=== PATIENT | female | born 1935 | race Caucasian/White ===

== ENCOUNTER → 2019-08-30 16:20 | Outpatient (BNVA) | payer MEDICARE, OTHER, SELFPAY | PROVIDERS: Family Provider Family Medicine; PCP Nurse Practitioner Family; Visit Provider Emergency Medicine | DX: J02.9 Acute pharyngitis, unspecified (principal) | CPT/HCPCS: 87070; 87880 ==

== ENCOUNTER 2020-05-19 13:51 | Emergency (ER) | payer MEDICARE, OTHER, SELFPAY ==
[2020-05-19 13:57] VITALS: BP 104/74; PULSE 122; RESP 18; TEMP 37.1; O2SAT 96; BMI 25.8
--- NOTE | 2020-05-19 14:16 | XRR_ITS ---
PROCEDURE INFORMATION: Exam: XR Chest Exam date and time: 05/19/2020 2:18 PM Age: 84 years old Clinical indication: Other: Dizzy; Additional info: Dizziness TECHNIQUE: Imaging protocol: XR of the chest Views: 1 view. COMPARISON: CR Chest 1 [place] [id number] 08/18/2014 4:05 PM FINDINGS: Tubes, catheters and devices: Unchanged postoperative clips are projected over the lung bases. Lungs: The lungs are hyperinflated with unchanged mild diffuse fibrosis. No consolidation. There is unchanged scarring left lung base. Pulmonary vascularity is within normal limits. Unchanged small calcified pulmonary granulomata are noted. Pleural spaces: Unremarkable. No pleural effusion. No pneumothorax. Heart/Mediastinum: Unremarkable. No cardiomegaly. Bones/joints: No acute abnormality. XR/XR chest 1V portable [id number] IMPRESSION: No acute findings.
--- NOTE | 2020-05-19 14:17 | ECG_ITS ---
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 Measurements Intervals [place] Rate: 133 P: NV: QRS: -10 QRSD: 74 T: 84 QT: 277 QTc: 413 Interpretive Statements ATRIAL FLUTTER/TACHYCARDIA WITH RAPID VENTRICULAR RESPONSE NONSPECIFIC T-WAVE ABNORMALITY Compared to ECG 08/18/2014 16:25:16 T-wave abnormality now present Sinus rhythm no longer present Electronically Signed On 05-19-2020 16:58:37 PROGRAM ENGAGEMENT DIRECTOR by Lorenzo Waldron M.D. [email or web address] [email or web address] Health[facility].[employer]/store/[id number] f
[2020-05-19 14:50] VITALS: BP 151/92; PULSE 122; RESP 15; O2SAT 97
--- NOTE | 2020-05-19 14:55 | W.ED.DIZZY ---
HPI - Dizziness General: Chief Complaint: Dizziness Stated Complaint: FLUNCUATING HEART RATE, NAUSEA Time Seen by Provider: 05/19/20 14:15 Source: patient Mode of arrival: ambulatory Limitations: no limitations History of Present Illness: HPI Narrative: Patient is a well-appearing 84-year-old female who appears younger than stated age and presents with complaints of feeling dizzy for the last 2 days. She states that she is felt near syncopal at times and knows that her heart is racing. She denies any chest pain or discomfort. She has had some associated nausea and vomiting and feeling generally ill since this started yesterday. No fevers or chills. She has tried some deep breathing exercise without any improvement of symptoms. MD elicited complaint: dizziness, lightheadedness and near syncope Onset (ago): day(s) (2) Timing: unsure Severity: moderate Associated symptoms: Reports malaise, nausea, palpitations, vomiting and weakness; Denies chest pain, fevers/chills or headache(s) Associated neuro symptoms: Deny confusion Review of Systems General: Reports: 10 or more systems reviewed and unremarkable except in HPI and below Const: Reports: malaise; Denies: fever(s) Eyes: Denies: change in vision Card: Reports: palpitations and irregular heart rhythm; Denies: chest pain or swelling of feet/ankles Resp: Denies: dyspnea GI: Reports: nausea and vomiting; Denies: abdominal pain Musc: Denies: back pain Skin/Breast: Denies: rash or pruritus Neuro: Denies: headache(s) or confusion PFS ED PFSH: Social History (Updated 08/30/19 @ 16:04 by Heidi Ignacio [facility]) Smoking and tobacco status: never smoked Alcohol intake: never Physical Exam Narrative: EXAM NARRATIVE: Well-appearing 84-year-old female in no acute distress Const: COMMON NORMALS: no acute distress, average body habitus, alert and well nourished GENERAL APPEARANCE: cooperative, comfortable and well kempt; not in distress ORIENTATION/CONSCIOUSNESS: Yes awake HENMT: COMMON NORMALS: normocephalic, atraumatic and Normal external nose present HEAD & SCALP: normocephalic and atraumatic NOSE: Normal external nose present MOUTH: Normal oral and palatal mucosa present Eye: COMMON NORMALS: EOMs intact bilaterally and conjunctivae normal CONJUNCTIVA: Yes conjunctivae normal Neck/C-Spine: GENERAL: Yes normal visual inspection, No tracheal deviation and No submandibular swelling Chest: COMMONS NORMALS: normal inspection of the chest Resp: COMMON NORMALS: normal respiratory effort, No retractions and No use of accessory muscles Cardio: COMMON NORMALS: Peripheral pulses 2+ throughout; negative for regular rate and negative for regular rhythm RATE: abnormal rate RHYTHM: abnormal rhythm PERIPHERAL PULSES: Peripheral pulses 2+ throughout OTHER: Tachycardic, rate is typically in the 120s and 130s rates. Appears to be atrial flutter with variable block. GI: COMMON NORMALS: Normal to inspection, nondistended, normoactive bowel sounds present, Soft to palpation and non-tender PALPATION: Yes Soft to palpation Extremity: COMMON NORMALS: normal to inspection, full ROM and no pedal edema Neuro: COMMON NORMALS: no focal motor deficits SENSORIUM/ORIENTATION: Yes alert Psych: APPEARANCE: Yes well kempt Skin: COMMON NORMALS: no rashes or lesions noted GENERAL SKIN EXAM: no rashes or lesions noted Course ED course: Patient was given 5 mg of IV metoprolol shortly after her initial evaluation. Approximately 10 or 15 minutes after this patient converted to sinus bradycardia. She has remained in sinus rhythm since that time and states she feels much better. Her laboratory work-up is unremarkable. Second troponin is pending. I spoke with Dr. Vera with cardiology who recommended starting the patient on 5 mg Eliquis twice daily. Patient does not have any contraindications to anticoagulation. Patient does not currently have a digital photographer and will go ahead and arrange for referral to cardiology locally. Patient was educated on her evaluation and plan for treatment and she is comfortable with this. She was given return precautions. Vital Signs: Vital signs: Vital Signs Temperature 98.7 F 05/19/20 13:57 Pulse Rate 57 L 05/19/20 17:04 Respiratory Rate 15 05/19/20 17:04 Blood Pressure 134/91 05/19/20 15:28 Pulse Oximetry 99 05/19/20 17:04 MDM - Dizziness Lab Data: Attestation: I reviewed the patient's lab results. Labs: Lab Results 05/19/20 05/19/20 05/19/20 Range/Units 15:00 15:00 15:00 WBC 6.9 (4.0-10.0) 10^3/ uL RBC 4.37 (4.1-5.3) 10^6/u L Hgb 14.0 (11.5-15.3) g/dL Hct 42.8 (37.0-47.0) % MCV 97.9 (81-99) fL MCH 32.0 (28.0-34.0) pg MCHC 32.7 (30.0-36.0) g/dL RDW 12.1 (12.1-15.1) % Plt Count 264 (130-400) 10^3/c mm MPV 10.9 H (7.4-10.4) fL Neut % (Auto) 68.7 % Lymph % (Auto) 23.9 % [place] % (Auto) 6.6 % Eos % (Auto) 0.1 % Baso % (Auto) 0.3 % Neut # (Auto) 4.76 (1.8-7.7) 10^3/u L Lymph # (Auto) 1.7 (0.8-4.8) 10^3/u L [place] # (Auto) 0.5 (0.2-0.9) 10^3/u L Eos # (Auto) 0.0 (0.0-0.8) 10^3/u L Baso # (Auto) 0.0 (0.0-0.1) 10^3/u L Nucleated RBC % (a uto) 0 % Nucleated RBCs # 0.0 /100WBC PT 13.40 (12.1-14.9) SECO NDS INR 0.99 (0.8-1.2) APTT 30.4 (23.9-36.7) SECO NDS Sodium 136 (136-145) mmol/L Potassium 4.5 (3.5-5.1) mmol/L Chloride 100 (98-107) mmol/L Carbon Dioxide 25 (22-29) mmol/L Anion Gap 15.5 (5-19) BUN 14 (8-23) mg/dL Creatinine 0.7 (0.5-0.9) mg/dL GFR Calculation Not Reportable Glucose 103 (65-115) mg/dL Calculated Osmolal ity 283 L (285-295) mOsm/k g Calcium 9.3 (8.5-10.5) mg/dL Magnesium 1.9 (1.7-2.3) mg/dL Total Bilirubin 0.4 (0.15-1.2) mg/dL AST 17 (0-32) U/L ALT 12 (0-33) U/L Alkaline Phosphata se 76 (35-105) IU/L Troponin T Baselin e (0-10) ng/L Troponin T 120 Min [place] (0-10) ng/L Delta Troponin T (0-10) ABS# Total Protein 7.3 (6.6-8.7) g/dL Albumin 4.4 (3.5-5.2) g/dL Globulin 2.9 (1.3-4.6) g/dL TSH 2.70 (0.27-4.20) uIU/ mL 05/19/20 05/19/20 Range/Units 15:00 17:05 WBC (4.0-10.0) 10^3/ uL RBC (4.1-5.3) 10^6/u L Hgb (11.5-15.3) g/dL Hct (37.0-47.0) % MCV (81-99) fL MCH (28.0-34.0) pg MCHC (30.0-36.0) g/dL RDW (12.1-15.1) % Plt Count (130-400) 10^3/c mm MPV (7.4-10.4) fL Neut % (Auto) % Lymph % (Auto) % [place] % (Auto) % Eos % (Auto) % Baso % (Auto) % Neut # (Auto) (1.8-7.7) 10^3/u L Lymph # (Auto) (0.8-4.8) 10^3/u L [place] # (Auto) (0.2-0.9) 10^3/u L Eos # (Auto) (0.0-0.8) 10^3/u L Baso # (Auto) (0.0-0.1) 10^3/u L Nucleated RBC % (a uto) % Nucleated RBCs # /100WBC PT (12.1-14.9) SECO NDS INR (0.8-1.2) APTT (23.9-36.7) SECO NDS Sodium (136-145) mmol/L Potassium (3.5-5.1) mmol/L Chloride (98-107) mmol/L Carbon Dioxide (22-29) mmol/L Anion Gap (5-19) BUN (8-23) mg/dL Creatinine (0.5-0.9) mg/dL GFR Calculation Glucose (65-115) mg/dL Calculated Osmolal ity (285-295) mOsm/k g Calcium (8.5-10.5) mg/dL Magnesium (1.7-2.3) mg/dL Total Bilirubin (0.15-1.2) mg/dL AST (0-32) U/L ALT (0-33) U/L Alkaline Phosphata se (35-105) IU/L Troponin T Baselin e 28 H (0-10) ng/L Troponin T 120 Min [place] 31.54 H (0-10) ng/L Delta Troponin T 3.54 (0-10) ABS# Total Protein (6.6-8.7) g/dL Albumin (3.5-5.2) g/dL Globulin (1.3-4.6) g/dL TSH (0.27-4.20) uIU/ mL No acute lab abnormalities. EKG Data^: EKG 1: EKG interpretation date: 05/19/20 EKG interpretation time: 14:20 Other EKG comments: ATRIAL FLUTTER/TACHYCARDIA WITH RAPID VENTRICULAR RESPONSE NONSPECIFIC T-WAVE ABNORMALITY EKG 2: EKG interpretation date: 05/19/20 EKG interpretation time: 15:25 Interpretation: Rate of 54 bpm. Sinus bradycardia rhythm. [place] interval is normal. Atrial flutter is no longer present. Discharge Plan Discharge Patient Disposition: Home Clinical Impression: Atrial flutter with rapid ventricular response Condition: Stable Prescriptions: New Eliquis 5 mg tablet 5 mg PO BID Qty: 60 RF: 0 No Action losartan 25 mg tablet 25 mg PO DAILY@0800 RF: 0 metoprolol tartrate 25 mg tablet 12.5 mg PO BID@0800,1999 RF: 0 hydrochlorothiazide 12.5 mg tablet 12.5 mg PO DAILY@0800 RF: 0 levothyroxine 88 mcg tablet 88 mcg PO DAILY@0600 RF: 0 meclizine 12.5 mg tablet 12.5 mg PO DAILY PRN (Reason: Dizziness) RF: 0 Vitamin C 1,000 mg Tablet 1,000 mg PO DAILY@0800 RF: 0 temazepam 7.5 mg capsule 7.5 mg PO DAILY@2000 RF: 0 gabapentin 100 mg capsule 100 mg PO BID RF: 0 Centrum Silver Ultra Women's Tablet 1 tab PO DAILY@0800 RF: 0 magnesium 1 tab PO DAILY@0800 RF: 0 Discharge Orders: Discharge ED (Routine); Ordered 05/19/20 Ordered By: Regulo Webb Referrals: Lorenzo Waldron M.D [Physician] - 1 week (atrial fib/flutter. ) Discharge Diet: Cardiac Discharge Activity: Resume usual activity Patient Instructions: Anticoagulation Therapy, Atrial Flutter (ED), Opioid Safety Coding Level of Care Code ED Aircraft Technician for Giorgi Fwd Exam Comprehensive
[2020-05-19] MEDS: metoprolol tartrate 1 mg/1 mL SDV 5 mL 5 MG IV (15:07)
[2020-05-19 15:10] VITALS: BP 134/91; PULSE 127; RESP 20; O2SAT 97
[2020-05-19 15:28] VITALS: BP 134/91; PULSE 53; RESP 14; O2SAT 97
[2020-05-19 15:37] LABS: Basophils % 0.3 %; Eosinophils % 0.1 %; Hematocrit 42.8 % (37.0-47.0); Lymphocytes # 1.7 10^3/uL (0.8-4.8); Lymphocytes % 23.9 %; Mean Corpuscular HGB Conc 32.7 g/dL (30.0-36.0); Mean Corpuscular Volume 97.9 fL (81-99); Mean Platelet Volume 10.9 fL (7.4-10.4); Monocytes # 0.5 10^3/uL (0.2-0.9); Monocytes % 6.6 %; Neutrophils # 4.76 10^3/uL (1.8-7.7); Neutrophils % 68.7 %; Nucleated Red Blood Cells % 0 %; Platelet Count 264 10^3/cmm (130-400); Red Blood Count 4.37 10^6/uL (4.1-5.3); Red Cell Distribution Width 12.1 % (12.1-15.1); White Blood Count 6.9 10^3/uL (4.0-10.0)
[2020-05-19 15:48] LABS: INR 0.99 (0.8-1.2)
[2020-05-19 15:49] LABS: Partial Thromboplastin Time 30.4 SECONDS (23.9-36.7)
[2020-05-19 15:58] LABS: Troponin(5th) Baseline 28 ng/L (0-10)
[2020-05-19 16:03] LABS: Alanine Aminotransferase 12 U/L (0-33); Albumin Level 4.4 g/dL (3.5-5.2); Alkaline Phosphatase 76 IU/L (35-105); Anion Gap 15.5 (5-19); Aspartate Amino Transferase 17 U/L (0-32); Blood Urea Nitrogen 14 mg/dL (8-23); Calcium 9.3 mg/dL (8.5-10.5); Carbon Dioxide 25 mmol/L (22-29); Chloride 100 mmol/L (98-107); Globulin 2.9 g/dL (1.3-4.6); Glucose 103 mg/dL (65-115); Magnesium 1.9 mg/dL (1.7-2.3); Osmolality Calculated 283 mOsm/kg (285-295); Potassium 4.5 mmol/L (3.5-5.1); Sodium 136 mmol/L (136-145); Total Bilirubin 0.4 mg/dL (0.15-1.2); Total Protein 7.3 g/dL (6.6-8.7)
--- NOTE | 2020-05-19 16:05 | ECG_ITS ---
[facility] Test Date: 2020-05-19 Pat Name: Anh Kat Department: Room: Gender: Female Entry Level Electrician: : 1935 Requested By: Regulo Webb Order Number: [id number] Haynes MD: Lorenzo Waldron M.D. Measurements Intervals [place] Rate: 54 P: 55 [place]: 197 QRS: 0 QRSD: 91 T: 50 QT: 394 QTc: 374 Interpretive Statements SINUS BRADYCARDIA Compared to ECG 05/19/2020 14:17:49 Atrial flutter no longer present T-wave abnormality no longer present Electronically Signed On 05-19-2020 16:58:21 BALL MILL OPERATOR by Lorenzo Waldron M.D. [id number] f
[2020-05-19 17:04] VITALS: PULSE 57; RESP 15; O2SAT 99
[2020-05-19 17:41] LABS: Troponin 5 2HR 31.54 ng/L (0-10); Troponin 5 2HR Delta 3.54 ABS# (0-10)
[2020-05-19 18:05] VITALS: BP 162/66; PULSE 56; RESP 16; O2SAT 98
--- NOTE | 2020-05-20 09:18 | DCPLANNER ---
promotion manager had message to schedule a follow up appointment for patient with heart care. promotion manager called the heart care clinic, spoke with Kimmy, gave clinic patients information. A follow up appointment was scheduled for Wednesday, May 27, 2020 at 8:[address] Reyes. promotion manager called patient with appointment information.
--- NOTE | 2020-06-06 15:02 | DCPLANNER ---
Patient had a follow up appointment scheduled for 05.27.[address] Reyes at [facility] - patient did attend appointment.
== END 2020-05-19 18:06 | disposition home or self-care (01) ==
PROVIDERS: Emergency Provider Student in an Organized Health Care Education/Training Program
DX: I48.92 Unspecified atrial flutter (principal)
CPT/HCPCS: 12345; 36415; 71045; 80053; 83735; 84443; 84484; 85025; 85610; 85730; 93005; 96374; 99283; J3490

== ENCOUNTER 2020-05-21 11:10 | Inpatient (IN) | payer MEDICARE, OTHER, SELFPAY ==
[2020-05-21] VITALS (89 sets, daily range): BP systolic 131–192; BP diastolic 48–103; PULSE 57–88; RESP 12–26; TEMP 36.4–37; O2SAT 91–100; BMI 30.6
--- NOTE | 2020-05-21 | CT_ITS ---
WS: [id number] CT HEAD NONCONTRAST HISTORY: STROKE LIKE SYMPTOMS TECHNIQUE: Contiguous axial imaging performed through the brain in 2.5 mm imaging. Bone and soft tiss ue windows. Sagittal and coronal reformats reviewed. All CT scans at [facility] use at ast one of these dose optimization techniques: automated exposure control; mA and/or kV adjustment pe r patient size (includes targeted exams where dose is matched to clinical indication); or iterative r econstruction. DLP: 904.71 mGy-cm. COMPARISON: 08/18/2014 No acute intracranial hemorrhage, midline shift or mass effect. Moderate bilateral atrophy and chronic microvascular ischemic disease. No focal area of sulcal efface ment. Small lacunar infarcts in the basal ganglia and internal capsules. Ventricles: Normal size with no hydrocephalus. Paranasal sinuses: As visualized are clear. Mastoid air cells: Well pneumatized. Calvarium and scalp: Skull is intact with no soft tissue edema or swelling. Moderate atherosclerosis intracranial carotid arteries. CT/CT head wo con* [id number] IMPRESSION: 1. No acute intracranial hemorrhage or edema. 2. Mild cerebral atrophy and chronic microvascular ischemic disease.
[2020-05-21 11:36] LABS: Glucose Point of Care 101 mg/dL (70-110)
--- NOTE | 2020-05-21 12:06 | ECG_ITS ---
[facility] Test Date: 2020-05-21 Pat Name: Anh Kat Department: Room: Gender: Female Reverser: : 1935 Requested By: Frannie Pulido I Order Number: [id number] Reading MD: JESSICA RODRIGUEZ Measurements Intervals [place] Rate: 60 P: 77 MN: 199 QRS: 39 QRSD: 81 T: 66 QT: 433 QTc: 434 Interpretive Statements SINUS RHYTHM POSSIBLE LEFT ATRIAL ENLARGEMENT [-0.1mV P WAVE IN V1/V2] SEPTAL MYOCARDIAL INFARCTION , OF INDETERMINATE AGE [40+ ms Q WAVE IN V1/V2] Compared to ECG 05/19/2020 15:21:01 Myocardial infarct finding now present Sinus bradycardia no longer present Electronically Signed On 05-21-2020 19:56:43 SHEET MUSIC SALESPERSON by JESSICA RODRIGUEZ [id number]
[2020-05-21 12:34] LABS: Basophils % 0.4 %; Eosinophils % 0.4 %; Hematocrit 38.3 % (37.0-47.0); Hemoglobin 12.6 g/dL (11.5-15.3); Lymphocytes # 0.9 10^3/uL (0.8-4.8); Lymphocytes % 10.4 %; Mean Corpuscular HGB Conc 32.9 g/dL (30.0-36.0); Mean Corpuscular Hemoglobin 32.7 pg (28.0-34.0); Mean Corpuscular Volume 99.5 fL (81-99); Mean Platelet Volume 10.9 fL (7.4-10.4); Monocytes # 0.4 10^3/uL (0.2-0.9); Monocytes % 4.4 %; Neutrophils # 6.99 10^3/uL (1.8-7.7); Neutrophils % 83.9 %; Nucleated Red Blood Cells % 0 %; Platelet Count 189 10^3/cmm (130-400); Red Blood Count 3.85 10^6/uL (4.1-5.3); Red Cell Distribution Width 12.1 % (12.1-15.1); White Blood Count 8.3 10^3/uL (4.0-10.0)
--- NOTE | 2020-05-21 12:39 | W.ED.FALL ---
HPI - Fall General: Chief Complaint: Fall Stated Complaint: POSSIBLE TIA Time Seen by Provider: 05/21/20 11:18 Source: patient Mode of arrival: EMS Limitations: no limitations History of Present Illness: HPI Narrative: Patient is an 84-year-old female with a history of A. fib who was started on Eliquis yesterday. This morning when she was about to have breakfast which included a bowl of blueberries, she accidentally knocked off the blueberries and he fell on the floor. While she was trying to sweep them all up she had a syncopal episode. She fell but does not know how or why. She did hit her head on the wall. Symptoms only lasted for a short while. She denies any chest pain or difficulty breathing. She denies any dizziness currently. MD complaint: fall Onset (ago): hour(s) (4) Fall from: standing Fall witnessed: no Place fall occurred: home Loss of consciousness: Unsure Prolonged down time: no Symptoms prior to fall: none Context: tripped/slipped Location of injury: head Associated symptoms-after fall: Denies abdominal pain, chest pain, confusion, headache(s), hematuria, lightheadedness, neck pain, numbness, short of breath, vertigo or weakness Review of Systems General: Reports: 10 or more systems reviewed and unremarkable except in HPI and below Const: Denies: fever(s), chills or body aches Eyes: Denies: change in vision or blurry vision ENMT: Denies: throat pain, enlarged tonsils, odynophagia, hoarseness, mouth pain or swelling of lips/tongue Card: Denies: chest pain or lightheadedness Resp: Denies: dyspnea, productive cough or non-productive cough GI: Denies: abdominal pain : Denies: hematuria Musc: Denies: neck pain Skin/Breast: Denies: rash, pruritus or erythema Neuro: Denies: headache(s), vertigo or confusion Endo: Denies: polyuria, polydipsia or tired all the time PFSH ED PFSH: Social History Smoking and tobacco status: never smoked Alcohol intake: never Physical Exam Const: COMMON NORMALS: no acute distress, average body habitus, patient oriented x3, no limitations, healthy appearing, alert and well nourished HENMT: COMMON NORMALS: normocephalic, atraumatic and moist oral mucous membranes HEAD & SCALP: normocephalic and atraumatic Eye: COMMON NORMALS: Equal, round and reactive pupils present, EOMs intact bilaterally, conjunctivae normal and no scleral icterus CONJUNCTIVA: Yes conjunctivae normal PUPIL: Yes Equal, round and reactive pupils present Neck/C-Spine: COMMON NORMALS: full ROM, supple, no meningeal signs, no JVD and No carotid bruits Chest: COMMONS NORMALS: normal inspection of the chest and normal palpation of entire chest wall Resp: COMMON NORMALS: normal respiratory effort, No retractions, No use of accessory muscles, clear to auscultation bilaterally and percussion normal AUSCULTATION: clear to auscultation bilaterally PERCUSSION: percussion normal Cardio: COMMON NORMALS: no JVD, regular rate, regular rhythm, S1 normal heart sound present, S2 normal heart sound present, No gallops present (Cardio), No clicks present (Cardio), No rub (Cardio) and Peripheral pulses 2+ throughout RATE: regular rate RHYTHM: regular rhythm HEART SOUNDS: S1 normal heart sound present, S2 normal heart sound present and Murmur heart sound present PERIPHERAL PULSES: Peripheral pulses 2+ throughout GI: COMMON NORMALS: Normal to inspection, nondistended, normoactive bowel sounds present, Soft to palpation, non-tender, No hepatosplenomegaly present, no masses and no bruits PALPATION: Yes Soft to palpation and Yes No hepatosplenomegaly present : COMMON NORMALS: Yes no CVA tenderness BLADDER/KIDNEY EXAM: Yes no CVA tenderness Back/Pelvis: COMMON NORMALS: no CVA tenderness Extremity: COMMON NORMALS: normal to inspection, full ROM, capillary refill normal, no calf tenderness and no pedal edema Neuro: COMMON NORMALS: patient oriented x3 SENSORIUM/ORIENTATION: Yes alert MENINGEAL SIGNS: Yes no meningeal signs OTHER: NIH 5 for minor paralysis of her face, left upper extremity drift but does not hit the bed, left lower extremity drift that does not hit the bed, mild dysarthria and ataxia in one limb Skin: COMMON NORMALS: no rashes or lesions noted, no wounds, turgor normal, no jaundice, no petechiae and no mottling GENERAL SKIN EXAM: no rashes or lesions noted and turgor normal Course Consultations: Consultation #1: Discussed the patient with Dr. Bryson, neurologist. She advised that we go ahead and give the patient TPA. Time: 12:50 Consultation #2: Discussed the patient with Dr. Hdez, hospitalist and he kindly accepted patient to his service Time: 13:35 Vital Signs: Vital signs: Vital Signs Temperature 97.6 F 05/21/20 11:54 Pulse Rate 61 05/21/20 18:30 Respiratory Rate 21 H 05/21/20 17:42 Blood Pressure 153/50 05/21/20 17:42 Pulse Oximetry 99 05/21/20 18:30 MDM - Fall MDM Narrative: Medical decision making narrative: This 84-year-old female patient presented to the emergency department following a fall. This patient was triaged as a fall and a delay in evaluation of the patient was because of this and the fact that the emergency department was very busy with ill patients. On evaluation of this patient neurologically she appears to have had a CVA with an NIHSS of 5. She met the criteria for TPA administration and thankfully she was still within the window, TPA was commenced about 4 hours after her symptoms started. She is admitted to the ICU for further evaluation and management. Head CT without contrast was unremarkable. The patient says she has a very severe allergy, anaphylaxis to IV contrast so a CTA of her head and neck was not performed. She will obtain an MRI and carotid Doppler while in the hospital. She did appear to be have better strength on less drift following administration of TPA. Medical Records: Attestation: I reviewed the patient's medical records. Lab Data: Attestation: I reviewed the patient's lab results. Labs: Lab Results 05/21/20 05/21/20 05/21/20 Range/Units 11:31 11:45 11:45 WBC 8.3 (4.0-10.0) 10^3/ uL RBC 3.85 L (4.1-5.3) 10^6/u L Hgb 12.6 (11.5-15.3) g/dL Hct 38.3 (37.0-47.0) % MCV 99.5 H (81-99) fL MCH 32.7 (28.0-34.0) pg MCHC 32.9 (30.0-36.0) g/dL RDW 12.1 (12.1-15.1) % Plt Count 189 (130-400) 10^3/c mm MPV 10.9 H (7.4-10.4) fL Neut % (Auto) 83.9 % Lymph % (Auto) 10.4 % Dickenson % (Auto) 4.4 % Eos % (Auto) 0.4 % Baso % (Auto) 0.4 % Neut # (Auto) 6.99 (1.8-7.7) 10^3/u L Lymph # (Auto) 0.9 (0.8-4.8) 10^3/u L Dickenson # (Auto) 0.4 (0.2-0.9) 10^3/u L Eos # (Auto) 0.0 (0.0-0.8) 10^3/u L Baso # (Auto) 0.0 (0.0-0.1) 10^3/u L Nucleated RBC % (a uto) 0 % Nucleated RBCs # 0.0 /100WBC PT Cancelled INR Cancelled D-Dimer Cancelled Sodium (136-145) mmol/L Potassium (3.5-5.1) mmol/L Chloride (98-107) mmol/L Carbon Dioxide (22-29) mmol/L Anion Gap (5-19) BUN (8-23) mg/dL Creatinine (0.5-0.9) mg/dL GFR Calculation Glucose (65-115) mg/dL POC Glucose 101 (70-110) mg/dL Calculated Osmolal ity (285-295) mOsm/k g Calcium (8.5-10.5) mg/dL Total Bilirubin (0.15-1.2) mg/dL AST (0-32) U/L ALT (0-33) U/L Alkaline Phosphata se (35-105) IU/L Troponin T Baselin e (0-10) ng/L NT-Pro-B Natriuret Pep (0-450) pg/mL Total Protein (6.6-8.7) g/dL Albumin (3.5-5.2) g/dL Globulin (1.3-4.6) g/dL 05/21/20 05/21/20 Range/Units 11:45 11:45 WBC (4.0-10.0) 10^3/ uL RBC (4.1-5.3) 10^6/u L Hgb (11.5-15.3) g/dL Hct (37.0-47.0) % MCV (81-99) fL MCH (28.0-34.0) pg MCHC (30.0-36.0) g/dL RDW (12.1-15.1) % Plt Count (130-400) 10^3/c mm MPV (7.4-10.4) fL Neut % (Auto) % Lymph % (Auto) % Dickenson % (Auto) % Eos % (Auto) % Baso % (Auto) % Neut # (Auto) (1.8-7.7) 10^3/u L Lymph # (Auto) (0.8-4.8) 10^3/u L Dickenson # (Auto) (0.2-0.9) 10^3/u L Eos # (Auto) (0.0-0.8) 10^3/u L Baso # (Auto) (0.0-0.1) 10^3/u L Nucleated RBC % (a uto) % Nucleated RBCs # /100WBC PT INR D-Dimer Sodium 134 L (136-145) mmol/L Potassium 4.7 (3.5-5.1) mmol/L Chloride 97 L (98-107) mmol/L Carbon Dioxide 26 (22-29) mmol/L Anion Gap 15.7 (5-19) BUN 14 (8-23) mg/dL Creatinine 0.7 (0.5-0.9) mg/dL GFR Calculation Not Reportable Glucose 101 (65-115) mg/dL POC Glucose (70-110) mg/dL Calculated Osmolal ity 279 L (285-295) mOsm/k g Calcium 8.9 (8.5-10.5) mg/dL Total Bilirubin 0.3 (0.15-1.2) mg/dL AST 24 (0-32) U/L ALT 12 (0-33) U/L Alkaline Phosphata se 68 (35-105) IU/L Troponin T Baselin e 31 H (0-10) ng/L NT-Pro-B Natriuret Pep 348 (0-450) pg/mL Total Protein 6.6 (6.6-8.7) g/dL Albumin 4.0 (3.5-5.2) g/dL Globulin 2.6 (1.3-4.6) g/dL Imaging Data^: CT Head: Attestation: I personally reviewed and interpreted this imaging study as follows: Radiologist's impression: [address] [place] [address] CT Scan Report Signed Patient: Sarah Kat #: [id number] : 6Acct#:[id number] Age/Sex: 84 / FADM Date: 05/21/20 Loc: ERRoom/Bed: Attending Dr: Ordering Provider/Ordering MD: Frannie Pulido MD, [facility] Date of Service: 05/21/20 Procedure(s): CT head wo con* [id number] Accession Number(s): [id number] Report Number: [id number] WS: [id number] CT HEAD NONCONTRAST HISTORY: STROKE LIKE SYMPTOMS TECHNIQUE: Contiguous axial imaging performed through the brain in 2.5 mm imaging. Bone and soft tissue windows. Sagittal and coronal reformats reviewed. All CT scans at [facility] use at least one of these dose optimization techniques: automated exposure control; mA and/or kV adjustment per patient size (includes targeted exams where dose is matched to clinical indication); or iterative reconstruction. DLP: 904.71 mGy-cm. COMPARISON: 08/18/2014 No acute intracranial hemorrhage, midline shift or mass effect. Moderate bilateral atrophy and chronic microvascular ischemic disease. No focal area of sulcal effacement. Small lacunar infarcts in the basal ganglia and internal capsules. Ventricles: Normal size with no hydrocephalus. Paranasal sinuses: As visualized are clear. Mastoid air cells: Well pneumatized. Calvarium and scalp: Skull is intact with no soft tissue edema or swelling. Moderate atherosclerosis intracranial carotid arteries. CT/CT head wo con* [id number] IMPRESSION: 1. No acute intracranial hemorrhage or edema. 2. Mild cerebral atrophy and chronic microvascular ischemic disease. Dictated By:Denise Larose DO Signed By:Denise Larose DOSigned Date/Time:05/21/20 1201 DD/ 1159 EKG Data^: EKG 1: Attestation: I personally reviewed and interpreted this EKG as follows: EKG interpretation date: 05/21/20 EKG interpretation time: 11:44 Prior EKG tracings: not available for review Interpretation: Normal sinus rhythm. Heart rate [address] changes. EKG 2: Attestation: I personally reviewed and interpreted this EKG as follows: EKG interpretation date: 05/21/20 EKG interpretation time: 13:26 Prior EKG tracings: available for review Interpretation: Low quality EKG with lots of interference Sinus rhythm. Heart rate [address] changes. EKG 3: Attestation: I personally reviewed and interpreted this EKG as follows: EKG interpretation date: 05/21/20 EKG interpretation time: 13:56 Prior EKG tracings: available for review Interpretation: Sinus bradycardia. Heart rate 55 bpm. Normal axis. No ST changes. EKG 4: Attestation: I personally reviewed and interpreted this EKG as follows: EKG interpretation date: 05/21/20 EKG interpretation time: 14:02 Prior EKG tracings: available for review Interpretation: Normal sinus rhythm. Heart rate [address] changes. Normal axis. Critical Care Time Critical Care Time: Critical Care Time: Yes Total Critical Care Time: 60 Attestation: This case had a high probability of a clinically significant, sudden, or life threatening deterioration of this patient's condition which required my full and direct attention, intervention and personal management. Discharge Plan Discharge Patient Disposition: Admitted As Inpatient Admit Provider: Dalton Hdez Clinical Impression: Acute CVA (cerebrovascular accident), Elevated troponin Condition: Stable Coding Level of Care Code ED Crate Icer for Chg Fwd Exam Comprehensive
[2020-05-21 12:54] LABS: Troponin(5th) Baseline 31 ng/L (0-10)
[2020-05-21 13:10] LABS: Alkaline Phosphatase 68 IU/L (35-105); Blood Urea Nitrogen 14 mg/dL (8-23); Calcium 8.9 mg/dL (8.5-10.5); Carbon Dioxide 26 mmol/L (22-29); Chloride 97 mmol/L (98-107); Globulin 2.6 g/dL (1.3-4.6); Glucose 101 mg/dL (65-115); NT Pro B Type Natriuretic Pept 348 pg/mL (0-450); Osmolality Calculated 279 mOsm/kg (285-295); Sodium 134 mmol/L (136-145); Total Bilirubin 0.3 mg/dL (0.15-1.2); Total Protein 6.6 g/dL (6.6-8.7)
[2020-05-21 13:13] LABS: Alanine Aminotransferase 12 U/L (0-33); Anion Gap 15.7 (5-19); Aspartate Amino Transferase 24 U/L (0-32); Potassium 4.7 mmol/L (3.5-5.1)
--- NOTE | 2020-05-21 13:14 | PC.NURSE ---
PT WAS GIVEN A 7.7MG BOLUS PRIOR TO THE 68MLS/HR
--- NOTE | 2020-05-21 14:06 | ECG_ITS ---
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
[2020-05-21 14:46] LABS: INR 0.99 (0.8-1.2)
[2020-05-21 14:48] LABS: D Dimer 0.41 ug/mIFEU (0-0.59)
--- NOTE | 2020-05-21 16:29 | P.HP_ITS ---
Providers/Chief Complaint Primary Care Provider: Zach Camp DO Chief Complaint: POSSIBLE TIA History of Present Illness Anh Kat is a 84 year old female with PMH of chronic recurrent syncope, A. fib, hypothyroidism, hypertension,was admitted after stroke alert was called, according to the patient when she got up this morning at around 7 AM and was cooking her breakfast, she had put together some blueberries and ultimately, unfortunately accidentally her blueberries fell on the floor, which he tried to gather, and at that time she suddenly fell down, and was unable to get back up, after some time she was able to call the EMS. She was taken to [facility] where preactivated stroke team at 1055. Upon arrival in the ER, her NIH stroke scale was: 6, CT head without contrast: Negative for any acute intracranial pathology. No hypoglycemia. Dr. Bryson was on on board, she was well within TPA window and her blood pressure had come down to less than 180/105 (she was given alteplase 100 mg I.V * [address] angio head and neck: Was ordered: Which she refused to get it done, she is extremely allergic to contrast. EKG : SINUS RHYTHM WITH OCCASIONAL VENTRICULAR PREMATURE COMPLEXES. Review of Systems General: Reports: 10 or more systems reviewed and unremarkable except in HPI and below Const: Denies: fever(s), chills, body aches, change in appetite or diaphoresis Card: Denies: palpitations, edema, swelling of feet/ankles, dyspnea on exertion, orthopnea or leg pain with exertion Resp: Denies: dyspnea, productive cough, wheezing or pain on inspiration GI: Denies: abdominal pain, nausea, vomiting, diarrhea or constipation : Denies: flank pain Musc: Denies: back pain, extremity pain or extremity swelling Neuro: Denies: headache(s), difficulty walking or confusion Medications/Allergies Home Medications Medication Instructions Recorded Confirmed Last Taken Type hydrochlorothiazide 12.5 mg tablet 12.5 mg PO DAILY@79908/30/19 05/21/20 05/20/20 History levothyroxine 88 mcg tablet 88 mcg PO DAILY@59908/30/19 05/21/20 05/20/20 History metoprolol tartrate 25 mg tablet 25 mg PO DAILY@79908/30/19 05/21/20 05/20/20 History meclizine 12.5 mg tablet 12.5 mg PO DAILY PRN 08/31/19 05/21/20 Unknown History apixaban [Eliquis] 5 mg PO BID #60 tab 05/19/20 05/21/20 Unknown Rx gabapentin 100 mg PO BID@0805/19/20 05/21/20 05/20/20 History magnesium 1 tab PO DAILY@79905/19/20 05/21/20 05/20/20 History cxwinvtq-oxoohip-jjcj-lutein 1 tab PO DAILY@79905/19/20 05/21/20 05/20/20 History [Centrum Silver Ultra Women's] temazepam 7.5 mg PO DAILY@199905/19/20 05/21/20 05/20/20 History aspirin 81 mg PO EVERY OTHER DAY 05/21/20 05/21/20 05/20/20 History fluticasone propionate 2 spray INTRANASAL DAILY PRN 05/21/20 05/21/20 Unknown History losartan 100 mg PO DAILY@79905/21/20 05/21/20 05/20/20 History Allergies Allergy/AdvReac Type Severity Reaction Status Date / Time meperidine [From Demerol] Allergy rash Verified 08/30/19 16:00 ranitidine [From Zantac] Allergy rash Verified 08/30/19 16:00 Sulfa (Sulfonamide Allergy rash Verified 08/30/19 16:00 Antibiotics) IV contrast Allergy Severe ALGY-Anaphy Uncoded 05/21/20 15:43 laxis PFSH Acute PFSH: Social History Smoking and tobacco status: never smoked Alcohol intake: never Vitals/I&O/Wt Last Vital Signs Temp 97.6 F 05/21/20 11:54 Pulse 88 05/21/20 16:10 Resp 21 H 05/21/20 15:10 BP 175/70 05/21/20 16:10 Pulse Ox 99 05/21/20 16:10 05/21/20 05/21/20 05/21/20 06:59 14:59 22:59 Intake Total 75.700 / 75.700 Balance 75.700 / 75.700 Weight last 48 hrs Weight 86.046 kg Physical Exam Const: COMMON NORMALS: patient oriented x3 HENMT: COMMON NORMALS: normocephalic, atraumatic, hearing grossly normal b ilaterally and external ears normal HEAD & SCALP: normocephalic and atrau matic EXTERNAL EAR: Yes external ears normal Eye: COMMON NORMALS: no scleral icterus GENERAL EYE: appearance normal, both eyes and all related structures Chest: COMMONS NORMALS: normal inspection of the chest and normal palpation of entire chest wall CHEST: Yes Symmetrical chest wall rise Resp: COMMON NORMALS: normal respiratory effort, No retractions, No use of accessory muscles and clear to auscultation bilaterally EFFORT & INSPECTION: Yes symmetric chest movement AUSCULTATION: clear to auscultation bilaterally Cardio: COMMON NORMALS: regular rate, regular rhythm, S1 normal heart sound present, S2 normal heart sound present, No gallops present (Cardio), No murmurs present (Cardio), No rub (Cardio) and Peripheral pulses 2+ throughout RATE: regular rate RHYTHM: regular rhythm HEART SOUNDS: S1 normal heart sound present and S2 normal heart sound present PERIPHERAL PULSES: Peripheral pulses 2+ throughout GI: COMMON NORMALS: Normal to inspection, nondistended, normoactive bowel sounds present, Soft to palpation, non-tender, No hepatosplenomegaly present and no masses AUSCULTATION: Yes normoactive bowel sounds PALPATION: Yes Soft to palpation and Yes No hepatosplenomegaly present RECTAL EXAM: deferred Extremity: COMMON NORMALS: no clubbing, cyanosis or edema and no pedal edema Neuro: COMMON NORMALS: patient oriented x3, CN's II-XII intact bilaterally, moves all extremities, no focal motor deficits and no sensory deficits noted SENSORIUM/ORIENTATION: Yes alert, Yes oriented to person, Yes oriented to place and Yes oriented to time SPEECH: speech normal SENSORY EXAM: Yes extremities MOTOR EXAM: 5/5 motor strength present throughout, no tremor noted, no asterixis, Motor fasciculations not present, Normal motor muscle tone present throughout and Pronator motor function present Data : 05/21/20 11:45 05/21/20 11:45 A&P Assessment and plan (1) Acute CVA (cerebrovascular accident): Ac MCA CVA: S/p Tpa MRI brain without contrast 2D echo Carotid Doppler bilateral Telemetry Will initiate aspirin 75 mg Po daily Plavix 75 mg p.o. daily Lipitor 80 mg p.o. daily Status: Acute (2) Elevated troponin: Likely type II VA Currently denies any chest pain shortness of breath. EKG is not suggestive of any acute myocardial injury. Status: Acute (3) Atrial fibrillation: Currently in sinus. She was recently started on Eliquis. But never took it. Status: Acute (4) Hypothyroidism: Status: Acute (5) Hypertension: Currently the aim is to maintain the systolic blood pressure less than 180 and DBP Less then < 105 as she is status post Tpa. Call the hospitalist if the B/P is greater then the goal target B/P. Status: Acute (6) Recurrent syncope: Status: Acute Additional A&P Information Code Status:Full code DVT PPX: SCDs Disposition:Home Attestations Medical Necessity Statement*: Patient needs to be in hospital for management of acute CVA. Anticipate length of stay greater than 2 midnights. Coding Level of Care Code Acute Human Resource Officer for Chg Fwd Diagnoses Acute CVA (cerebrovascular accident) I63.9 Elevated troponin R77.8 Atrial fibrillation I48.91 Hypothyroidism E03.9 Hypertension I10 Recurrent syncope R55
--- NOTE | 2020-05-21 16:35 | PC.NURSE ---
patient seen by Dr. Hdez for admission. Dr. Hdez ordered okay to give patient food. Low Na. Dr. Hdez advised margaret to give patient sandwich from ED food stores. Patient given sandwich, diet cola tolerated well.
[2020-05-21 17:02] LABS: Add Urine Microscopic? NO
[2020-05-21 17:15] LABS: Bilirubin Urine Neg (Negative); Blood Urine Neg (Negative); Glucose Urine UA Norm (Normal); Ketones Urine Negative (Negative); Leukocyte Esterase Urine Negative (Negative); Nitrate Urine Negative (Negative); Protein Urine Neg (Negative); Specific Gravity, Urine 1.005 (1.005-1.030); Urine Appearance Clear (CLEAR); Urine Color Straw (Yellow); Urobilinogen Urine Norm (Negative); pH Urine 7 (5-7)
[2020-05-21 17:22] LABS: Amphetamines Screen Urine Negative (Negative); Barbiturates Screen Urine Negative (Negative); Benzodiazepines Screen Urine Positive (Negative); Cocaine Screen Urine Negative (Negative); Opiate Screen Urine Negative (Negative); PCP Screen Urine Negative (Negative); THC Screen Urine Negative (Negative)
--- NOTE | 2020-05-21 18:06 | ECG_ITS ---
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1935 Requested By: Frannie Pulido I Order Number: [id number] Reading MD: JESSICA RODRIGUEZ Measurements Intervals [place] Rate: 73 P: 96 ID: [id number] QRS: 52 QRSD: 86 T: 71 QT: 383 QTc: 424 Interpretive Statements SINUS RHYTHM WITH OCCASIONAL VENTRICULAR PREMATURE COMPLEXES WARNING: DATA QUALITY MAY AFFECT INTERPRETATION Compared to ECG 05/21/2020 11:44:27 Ventricular premature complex(es) now present Myocardial infarct finding no longer present Electronically Signed On 05-21-2020 20:01:08 FIRE ALARM OPERATOR by JESSICA RODRIGUEZ [id number]
--- NOTE | 2020-05-21 19:36 | P.PNCC_ITS ---
Stroke Alert Activation ED Arrival Date: 05/21/20 ED Arrival Time: 11:10 ED Physican at Bedside: 11:10 Last Known Normal/at Baseline: 3-4 hours ago Other Last Known Well Infomation: Time that I have recorded may not be exactly accurate. The patient says that she got up this morning at 7:00 and cooked herself breakfast, put together some blueberries and oatmeal and accidentally brushed her blueberries off onto the floor. They scattered everywhere and she got up with a broom to clean them up. Suddenly she fell down and discovered that she could not get back up. Was a long time before she could inch her way on her belly down the garcia to a phone. She was brought to the EMS by [facility], who preactivated stroke team at 1055. Somehow the hyperacute situation was not transmitted to Dr. Dr. Garzon, who was just coming on shift and he did not see the patient until 1201. I called the emergency department and took report right after EMS called and said that the patient was having a TIA involving facial weakness. Dr. Garzon examined her later and found an NIH stroke scale score of 6, which was accurate based upon my exam later, and since her blood pressure had come down, her blood sugar was normal and I reviewed her CT on the monitor when he called me, I asked him to go ahead with TPA. The bolus was given at 1326 which was an hour and 15 minutes after the patient arrived at [facility]. Dr. Garzon was involved in a code just after he arrived and there was a miscommunication and letting him know that there was a stroke alert. Stroke Alert Activated by: [facility] Stroke Alert Activation Time: 10:55 Stroke MD @ Bedside Time: 10:55 NIH Stroke Scale Time: 13:15 NIH stroke score NIHSS: Level Of Consciousness - 1a: 0 Level Of Consciousness Questions - 1b: Both Correct Level Of Consciousness Commands - 1c: Both Correct Best Gaze - 2: Normal Visual Brantley - 3: No Visual Loss Facial Palsy - 4: Minor Paralysis Motor Arm Right - 5: No Drift Motor Arm Left - 5: Drift Motor Leg Right - 6: No Drift Motor Leg Left - 6: Drift Limb Ataxia - 7: Present In One Limb Sensory - 8: Normal Best Language - 9: No Aphasia Dysarthia - 10: Mild/Moderate Dysarthia Extinction And Inattention - 11: 1 (Extinction to double simultaneous touch) Score: Total Score: 6 Stroke Alert Data/Treatment Stroke Risk Factors: hypertension tPA Started Time: tPA Started - Time: 13:26 Patient & Family Educated on: Cause of Stroke, Treament Plan and tPA Risks/Benefits Standardized Stroke Orders Used: Yes Critical Care Time Critical Care Time: 30 - 74 mins A&P Assessment and plan (1) Right middle cerebral artery stroke: This is an 84-year-old woman who was started on anticoagulation yesterday for atrial fibrillation. She had not taken her first dose of apixaban prior to onset of left hemiparesis. She had definite cortical sign of extinction to double simultaneous stimulation, consistent with left middle cerebral artery involvement. She was also mildly aprosodia. Her somatic weakness should improve as it is mild. I asked Dr. Dr. Garzon to go ahead with CT angiogram to make sure she did not have a large vessel occlusion as her NIH stroke scale score would permit embolectomy. She will need to have a CT scan of the head in the morning. Her TPA was given right at 4-1/2 hours from last known well. The origin of her stroke is presumably atrial fibrillation. 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
[2020-05-21 19:44] LABS: Troponin 5 6HR 29.23 ng/L (0-10)
[2020-05-21 19:47] LABS: Troponin 5 6HR Delta -1.77 ng/L (0-12)
[2020-05-21] MEDS: gabapentin 100 mg Capsule PO (20:59)
[2020-05-22] VITALS (68 sets, daily range): BP systolic 117–167; BP diastolic 43–90; PULSE 53–87; RESP 13–27; TEMP 36.2–37.5; O2SAT 90–98
[2020-05-22 03:56] LABS: Basophils % 0.5 %; Eosinophils # 0.1 10^3/uL (0.0-0.8); Eosinophils % 1.9 %; Hematocrit 33.9 % (37.0-47.0); Hemoglobin 11.1 g/dL (11.5-15.3); Lymphocytes # 1.8 10^3/uL (0.8-4.8); Mean Corpuscular HGB Conc 32.7 g/dL (30.0-36.0); Mean Corpuscular Hemoglobin 32.1 pg (28.0-34.0); Monocytes # 0.6 10^3/uL (0.2-0.9); Monocytes % 9.4 %; Neutrophils # 3.44 10^3/uL (1.8-7.7); Nucleated Red Blood Cells % 0 %; Platelet Count 198 10^3/cmm (130-400); Red Blood Count 3.46 10^6/uL (4.1-5.3); Red Cell Distribution Width 11.9 % (12.1-15.1); White Blood Count 5.9 10^3/uL (4.0-10.0)
--- NOTE | 2020-05-22 04:00 | USCV_ITS ---
Anh Kat Age: 84 Gender: F : 1935 Exam Date: 05/22/2020 05:38 Ordering Phys: Dalton Hdez MD Technologist: Audrey Bustamante [place] [facility] [place]ication: CVA Risk Factors: Unknown Previous Vascular Surgery: None Right Brachial BP: / Left Brachial BP: / Right Left Velocity (cm/s) Spectral Plaque Velocity (cm/s) Spectral Plaque Syst/Diast Broadening Syst/Diast Broadening 101.80/21.00 Prox CCA 102.80/ 9.60 100.20/18.60 Mid CCA 87.10 / 14.30 102.50/16.30 Distal CCA 80.50 / 13.20 67.60/ 13.20 Prox ICA 71.70 / 13.20 50.30/ 15.80 Mid ICA 76.10 / 13.75 51.80/ 14.30 Distal ICA 92.60 / 15.40 96.30 ECA 99.20 0.67 ICA/CCA 1.06 Antegrade Vertebral Antegrade 45.40/ 7.40 cm/s 61.70/ 9.90 cm/s Tri Subclavian Tri 84.00 134.5 0 FINDINGS Comparison: none available. Diffuse, mild bilateral scattered calcified plaque and intimal thickening throughout the common carotid arteries and extending through the bifurcation. No significant elevation of systolic or diastolic velocities. Antegrade vertebral arteries. CONCLUSIONS Bilateral ICA stenosis less than 50%. Mild diffuse atherosclerosis. Dr. Denise Larose DO (Electronically Signed) Final Date: 22 May 2020 08:10 S
--- NOTE | 2020-05-22 04:00 | USCV_ITS ---
Anh Kat Age: 84 Gender: F : 1935 Exam Date: 05/22/2020 05:15 Ordering Phys: Dalton Hdez MD Technologist: Audrey Bustamante Exam Location: [facility] [place] Indication: CVA BP: 147 / 59 HR: 59 Rhythm: Sinus Technical Quality: Adequate MEASUREMENTS (Male / Female) Normal Values 2D ECHO LV Diastolic Diameter PLAX 4.5 cm 4.2 - 5.9 / 3.9 - 5.3 cm LV Systolic Diameter PLAX 2.5 cm LV Chamber Size 2.9 cm IVS Diastolic Thickness 1.2 cm 0.6 - 1.0 / 0.6 - 0.9 cm IVS Systolic Thickness 1.4 cm LVPW Diastolic Thickness 1.0 cm 0.6 - 1.0 / 0.6 - 0.9 cm LVPW Systolic Thickness 1.6 cm RV Chamber Size 2.7 cm LVOT Diameter 2.0 cm LV Ejection Fraction 2D Teich 75.0 % LV Ejection Fraction MOD 2C 45.7 % LV Ejection Fraction 2C AL 45.9 % LA Diameter 3.8 cm LA Width 2.2 cm LA Height 3.1 cm RA Width 3.5 cm RA Height 3.8 cm Aorta at Sinotubular Diameter 2.2 cm M-MODE LV Diastolic Diameter MM 5.2 cm 4.2 - 5.9 / 3.9 - 5.3 cm LV Systolic Diameter MM 2.7 cm LV Ejection Fraction MM Teich 78.6 % IVS Diastolic Thickness MM 1.0 cm 0.6 - 1.0 / 0.6 - 0.9 cm IVS Systolic Thickness MM 1.7 cm LVPW Diastolic Thickness MM 1.1 cm 0.6 - 1.0 / 0.6 - 0.9 cm LVPW Systolic Thickness MM 1.9 cm RV Diastolic Diameter MM 1.4 cm Aortic Annulus Diameter 2.5 cm LA Ao Ratio MM 1.9 MV E Point Septal Separation 0.3 cm DOPPLER AV Peak Velocity 138.0 cm/s LVOT Peak Velocity 132.0 cm/s AV Area Cont Eq vti 3.0 cm squared AV Area Cont Eq pk 3.1 cm squared MV Area PHT 2.6 cm squared Mitral E to A Ratio 1.1 MV E' Velocity 50.5 cm/s Mitral E to MV E' Ratio 12.4 Mitral E to LV E' Lateral Ratio 9.9 Mitral E to LV E' Septal Ratio 16.8 TR Peak Velocity 321.0 cm/s TR Peak Gradient 41.2 mmHg TR Mean Velocity 241.0 cm/s TR Mean Gradient 25.4 mmHg TR Velocity Time Integral 98.1 cm TV Peak E Velocity 67.0 cm/s Right Atrial Pressure 3.0 mmHg Pulmonary Artery Systolic Pressu 44.2 mmHg PV Peak Velocity 111.0 cm/s RV Acceleration Time 0.1 s RV Ejection Time 0.4 s RV AcT/ET 0.4 FINDINGS Left Ventricle Normal left ventricular size, systolic function and wall thickness, with no regional wall motion abnormalities. Left ventricular ejection fraction is estimated at 70 %. Grade II diastolic dysfunction, moderately elevated filling pressures. Right Ventricle Normal right ventricular size and systolic function. Right ventricular systolic pressure 44.2 mmHg. Right Atrium Normal right atrial size. Left Atrium Left atrium not well visualized. Mitral Valve Moderate mitral annular calcification. Thickened mitral valve. No mitral valve stenosis. Trace mitral valve regurgitation. Aortic Valve Aortic valve not well visualized. Thickened and calcified aortic valve. No aortic valve stenosis. No aortic valve regurgitation. Tricuspid Valve Structurally normal tricuspid valve. Moderate tricuspid valve regurgitation. Pulmonic Valve Pulmonic valve not well visualized. Pericardium No pericardial effusion. Aorta Normal-sized aortic root. CONCLUSIONS 1. This is a technically difficult study. Optison was used per protocol. 2. Normal left ventricular size, systolic function and wall thickness, with no regional wall motion abnormalities. Left ventricular ejection fraction is estimated at 70 %. Grade II diastolic dysfunction, moderately elevated filling pressures. 3. Moderate tricuspid valve regurgitation. 4. Pulmonary artery pressure esimated at 44 mm Hg. 5. No prior similar studies to compare. Shalini Reyes MD (Electronically Signed) Final Date: 22 May 2020 23:01 S
[2020-05-22 04:08] LABS: INR 1.12 (0.8-1.2)
[2020-05-22 04:09] LABS: Partial Thromboplastin Time 31.8 SECONDS (23.9-36.7)
[2020-05-22 04:13] LABS: Alanine Aminotransferase 9 U/L (0-33); Albumin Level 3.6 g/dL (3.5-5.2); Alkaline Phosphatase 64 IU/L (35-105); Anion Gap 11.7 (5-19); Aspartate Amino Transferase 15 U/L (0-32); Blood Urea Nitrogen 13 mg/dL (8-23); Calcium 8.2 mg/dL (8.5-10.5); Carbon Dioxide 28 mmol/L (22-29); Chloride 101 mmol/L (98-107); Globulin 2.3 g/dL (1.3-4.6); Glucose 101 mg/dL (65-115); Magnesium 1.9 mg/dL (1.7-2.3); Osmolality Calculated 284 mOsm/kg (285-295); Potassium 3.7 mmol/L (3.5-5.1); Sodium 137 mmol/L (136-145); Total Bilirubin 0.5 mg/dL (0.15-1.2); Total Protein 5.9 g/dL (6.6-8.7)
[2020-05-22] MEDS: levothyroxine 88 mcg Tablet PO (05:15)
[2020-05-22] MEDS: gabapentin 100 mg Capsule PO ×2 (08:44→20:30)
--- NOTE | 2020-05-22 09:56 | PM.PN ---
Subjective Subjective: Interval history: Patient was seen and examined this morning, she has some concerns regarding her speech. Blood pressure is well controlled. No focal weakness. Repeat CT head without contrast done. SHe is participating with physical therapy. Speech and swallow evaluation ordered. Vitals/I&O/Wt Last Vital Signs Temp 98.8 F 05/22/20 07:38 Pulse 75 05/22/20 09:00 Resp 20 H 05/22/20 09:00 BP 117/90 05/22/20 09:00 Pulse Ox 93 05/22/20 07:30 05/21/20 05/22/20 05/22/20 22:59 06:59 14:59 Intake Total 125 / 200.700 440 / 440 Output Total 350 / 350 Balance -350 / -274.300 125 / -149.300 440 / 440 Weight last 48 hrs Weight 86.046 kg Physical Exam Const: COMMON NORMALS: patient oriented x3 and alert ORIENTATION/CONSCIOUSNESS: Yes oriented to person, Yes oriented to place and Yes oriented to time HENMT: COMMON NORMALS: normocephalic, atraumatic, hearing grossly normal bilaterally and external ears normal HEAD & SCALP: normocephalic and atraumatic EXTERNAL EAR: Yes external ears normal Eye: COMMON NORMALS: no scleral icterus GENERAL EYE: appearance normal, both eyes and all related structures Chest: COMMONS NORMALS: normal inspection of the chest and normal palpation of entire chest wall CHEST: Yes Symmetrical chest wall rise Resp: COMMON NORMALS: normal respiratory effort, No retractions, No use of accessory muscles and clear to auscultation bilaterally EFFORT & INSPECTION: Yes symmetric chest movement AUSCULTATION: clear to auscultation bilaterally Cardio: COMMON NORMALS: regular rate, regular rhythm, S1 normal heart sound present, S2 normal heart sound present, No gallops present (Cardio), No murmurs present (Cardio), No rub (Cardio) and Peripheral pulses 2+ throughout RATE: regular rate RHYTHM: regular rhythm HEART SOUNDS: S1 normal heart sound present and S2 normal heart sound present PERIPHERAL PULSES: Peripheral pulses 2+ throughout GI: COMMON NORMALS: Normal to inspection, nondistended, normoactive bowel sounds present, Soft to palpation, non-tender, No hepatosplenomegaly present and no masses AUSCULTATION: Yes normoactive bowel sounds PALPATION: Yes Soft to palpation and Yes No hepatosplenomegaly present RECTAL EXAM: deferred Extremity: COMMON NORMALS: no clubbing, cyanosis or edema and no pedal edema Neuro: COMMON NORMALS: patient oriented x3, CN's II-XII intact bilaterally, moves all extremities, no focal motor deficits and no sensory deficits noted SENSORIUM/ORIENTATION: Yes alert, Yes oriented to person, Yes oriented to place and Yes oriented to time SPEECH: speech normal SENSORY EXAM: Yes extremities MOTOR EXAM: 5/5 motor strength present throughout, no tremor noted, no asterixis, Motor fasciculations not present, Normal motor muscle tone present throughout and Pronator motor function present Data : 05/22/20 03:33 03 03:33 A&P Assessment and plan (1) Acute CVA (cerebrovascular accident): Ac MCA CVA: S/p Tpa Repeat C.T Head without contrast: No acute intracranial hemorrhage.Interval development of scalp edema over the vertex of the calvarium. 2D echo; Carotid Doppler bilateral; Bilateral ICA stenosis less than 50%. Telemetry Will initiate aspirin 75 mg Po daily Plavix 75 mg p.o. daily Lipitor 80 mg p.o. daily Status: Acute (2) Elevated troponin: Likely type II HI Currently denies any chest pain shortness of breath. EKG is not suggestive of any acute myocardial injury. Status: Acute (3) Atrial fibrillation: Currently in sinus. She was recently started on Eliquis. But never took it. Status: Acute (4) Hypothyroidism: Status: Acute (5) Hypertension: Currently the aim is to maintain the systolic blood pressure less than 180 and DBP Less then < 105 as she is status post Tpa. Call the hospitalist if the B/P is greater then the goal target B/P. Status: Acute (6) Recurrent syncope: Event Monitor for 21 Days on discharge. 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
--- NOTE | 2020-05-22 12:52 | CT_ITS ---
WS: [id number] CT HEAD NONCONTRAST HISTORY: Acute CVA, S/P TPA TECHNIQUE: Contiguous axial imaging performed through the brain in 2.5 mm imaging. Bone and soft tiss ue windows. Sagittal and coronal reformats reviewed. All CT scans at [facility] use at le ast one of these dose optimization techniques: automated exposure control; mA and/or kV adjustment pe r patient size (includes targeted exams where dose is matched to clinical indication); or iterative r econstruction. DLP: 820.67 mGy.cm COMPARISON: 05/21/2020 No acute intracranial hemorrhage, midline shift or mass effect. Mild atrophy and chronic ischemic disease. Small prior lacunar infarcts in the external capsules. Ventricles: Normal size with no hydrocephalus. Paranasal sinuses: As visualized are clear. Mastoid air cells: Well pneumatized. Calvarium and scalp: No calvarial fracture. Interval development of moderate amount of scalp edema to wards the vertex of the skull which was not present on the prior study. CT/CT head wo con* [id number] IMPRESSION: 1. No acute intracranial hemorrhage. 2. Interval development of scalp edema over the vertex of the calvarium.
[2020-05-22] MEDS: calcium carbonate 500 mg Chew Tablet PO (14:12)
[2020-05-22] MEDS: perflutren protein-a microsphr 0.22 mg/mL SDV 3 mL IV (16:12)
--- NOTE | 2020-05-22 20:27 | PC.NURSE ---
refused lipitor pt reports terrible leg cramps and stopping this medication months ago with her family physican Diony Abel in [place]
[2020-05-23] VITALS (10 sets, daily range): BP systolic 145–150; BP diastolic 71–81; PULSE 58–77; RESP 17–18; TEMP 36.7–37.2; O2SAT 94–98
[2020-05-23] MEDS: levothyroxine 88 mcg Tablet PO (05:55)
--- NOTE | 2020-05-23 06:09 | PC.NURSE ---
dietary pt would like to have banana daily please call dietary.
[2020-05-23 06:30] LABS: Basophils % 0.4 %; Eosinophils # 0.2 10^3/uL (0.0-0.8); Eosinophils % 4.3 %; Hematocrit 34.1 % (37.0-47.0); Hemoglobin 11.1 g/dL (11.5-15.3); Lymphocytes # 1.7 10^3/uL (0.8-4.8); Lymphocytes % 32.3 %; Mean Corpuscular HGB Conc 32.6 g/dL (30.0-36.0); Mean Corpuscular Hemoglobin 32.2 pg (28.0-34.0); Mean Corpuscular Volume 98.8 fL (81-99); Mean Platelet Volume 10.7 fL (7.4-10.4); Monocytes # 0.5 10^3/uL (0.2-0.9); Monocytes % 9.8 %; Nucleated Red Blood Cells % 0 %; Platelet Count 199 10^3/cmm (130-400); Red Blood Count 3.45 10^6/uL (4.1-5.3); Red Cell Distribution Width 11.9 % (12.1-15.1); White Blood Count 5.3 10^3/uL (4.0-10.0)
[2020-05-23 06:51] LABS: Alanine Aminotransferase 8 U/L (0-33); Albumin Level 3.3 g/dL (3.5-5.2); Alkaline Phosphatase 65 IU/L (35-105); Anion Gap 12.1 (5-19); Aspartate Amino Transferase 14 U/L (0-32); Blood Urea Nitrogen 10 mg/dL (8-23); Calcium 8.1 mg/dL (8.5-10.5); Carbon Dioxide 27 mmol/L (22-29); Chloride 103 mmol/L (98-107); Globulin 2.6 g/dL (1.3-4.6); Glucose 92 mg/dL (65-115); Osmolality Calculated 285 mOsm/kg (285-295); Potassium 4.1 mmol/L (3.5-5.1); Sodium 138 mmol/L (136-145); Total Bilirubin 0.3 mg/dL (0.15-1.2); Total Protein 5.9 g/dL (6.6-8.7)
[2020-05-23] MEDS: aspirin 81 mg Chew Tablet PO (10:01)
[2020-05-23] MEDS: gabapentin 100 mg Capsule PO (10:01)
--- NOTE | 2020-05-23 11:39 | PM.DCS ---
Discharge Providers Date of Admission: 05/21/20 13:45 Date of Discharge: May 23, 2020 Attending Provider at Admission: Dalton Hdez MD Attending Provider at Discharge: Dalton Hdez MD Primary Care Provider: Zach Camp DO Diagnoses at Discharge Discharge Diagnosis (1) Acute CVA (cerebrovascular accident): Status: Acute Permanent problem details: Right middle cerebral artery stroke (2) Atrial fibrillation: Status: Chronic (3) Hypothyroidism: Status: Chronic (4) Hypertension: Status: Chronic (5) Recurrent syncope: Status: Chronic Reason for Visit Reason for Visit: POSSIBLE TIA Hospital Course Hospital Course Anh Kat is a 84 year old female with PMH of chronic recurrent syncope, A. fib, hypothyroidism, hypertension,was admitted after stroke alert was called, according to the patient when she got up this morning at around 7 AM and was cooking her breakfast, she had put together some blueberries and ultimately, unfortunately accidentally her blueberries fell on the floor, which he tried to gather, and at that time she suddenly fell down, and was unable to get back up, after some time she was able to call the EMS. She was taken to [facility] where preactivated stroke team at 1055. Upon arrival in the ER, her NIH stroke scale was: 6, CT head without contrast: Negative for any acute intracranial pathology. No hypoglycemia. Dr. Bryson was on on board, she was well within TPA window and her blood pressure had come down to less than 180/105 (she was given alteplase 100 mg I.V * [address] angio head and neck: Was ordered: Which she refused to get it done, she is extremely allergic to contrast. EKG : SINUS RHYTHM WITH OCCASIONAL VENTRICULAR PREMATURE COMPLEXES.She was admitted for the management of acute MCA CVA. During the hospital stay repeat CT head without contrast was done: No acute intracranial hemorrhage.Interval development of scalp edema over the vertex of the calvarium. 2D echo;Normal left ventricular size, systolic function and wall thickness, with no regional wall motion abnormalities. Left ventricular ejection fraction is estimated at 70 %. Grade II diastolic dysfunction, moderately elevated filling pressures. Moderate tricuspid valve regurgitation. Pulmonary artery pressure esimated at 44 mm Hg. Carotid Doppler bilateral; Bilateral ICA stenosis less than 50%. No significant arrhythmia on telemetry.She was started on aspirin 75 mg oral day 24 hours post TPA. She was also started on statin, is reluctant to take statin as she is has muscle cramps with it.She was explained the benefit of taking statin in CVA. And to give it another try if she develop any symptoms, she can be switched to a lower dose. She was also reluctant to use Eliquis she was advised to start Eliquis in a week time, as it is important given her history of A. fib,and to prevent any future stroke. Patient was also set up for 3 weeks of event monitor as well as she will follow cardiology as an outpatient for management of her A. fib. For elevated troponin, it was likely secondary to demand ischemia, she denied any chest pain shortness of breath, EKG was not suggestive of any, acute myocardial insult. Physical therapy was on on board, she participated with physical therapy and was discharged on a walker, exercise regimen was provided. Patient will follow Dr. Bryson as well as Dr. Reyes as outpatient. Patient responded well to the above medical management and she is being discharged in stable condition to home. Physical Exam Const: COMMON NORMALS: patient oriented x3 and alert ORIENTATION/CONSCIOUSNESS: Yes oriented to person, Yes oriented to place and Yes oriented to time HENMT: COMMON NORMALS: normocephalic, atraumatic, hearing grossly normal bilaterally and external ears normal HEAD & SCALP: normocephalic and atraumatic EXTERNAL EAR: Yes external ears normal Eye: COMMON NORMALS: no scleral icterus GENERAL EYE: appearance normal, both eyes and all related structures Chest: COMMONS NORMALS: normal inspection of the chest and normal palpation of entire chest wall CHEST: Yes Symmetrical chest wall rise Resp: COMMON NORMALS: normal respiratory effort, No retractions, No use of accessory muscles and clear to auscultation bilaterally EFFORT & INSPECTION: Yes symmetric chest movement AUSCULTATION: clear to auscultation bilaterally Cardio: COMMON NORMALS: regular rate, regular rhythm, S1 normal heart sound present, S2 normal heart sound present, No gallops present (Cardio), No murmurs present (Cardio), No rub (Cardio) and Peripheral pulses 2+ throughout RATE: regular rate RHYTHM: regular rhythm HEART SOUNDS: S1 normal heart sound present and S2 normal heart sound present PERIPHERAL PULSES: Peripheral pulses 2+ throughout GI: COMMON NORMALS: Normal to inspection, nondistended, normoactive bowel sounds present, Soft to palpation, non-tender, No hepatosplenomegaly present and no masses AUSCULTATION: Yes normoactive bowel sounds PALPATION: Yes Soft to palpation and Yes No hepatosplenomegaly present RECTAL EXAM: deferred Extremity: COMMON NORMALS: no clubbing, cyanosis or edema and no pedal edema Neuro: COMMON NORMALS: patient oriented x3, CN's II-XII intact bilaterally, moves all extremities, no focal motor deficits and no sensory deficits noted SENSORIUM/ORIENTATION: Yes alert, Yes oriented to person, Yes oriented to place and Yes oriented to time SPEECH: speech normal SENSORY EXAM: Yes extremities MOTOR EXAM: 5/5 motor strength present throughout, no tremor noted, no asterixis, Motor fasciculations not present, Normal motor muscle tone present throughout and Pronator motor function present Discharge Data Data Completed and Pending: Completed Studies During Hospitalization Category Date Time Status CT head wo con* 7 0450 Routine Cat Scan 05/22/20 12:[address] head wo con* 7 0450 Urgent Cat Scan 05/21/20 Completed CV carotid duplex BI* [id number] Routine Ultrasound 05/22/20 04:00 Completed CV echo wo/w cont rast [id number] Routine Ultrasound 05/22/20 04:00 Completed US/CV paperwork R outine Ultrasound 05/22/20 Completed Pending at discharge Category Date Time Status CA cardiac event monitor Routine Exams 05/22/20 12:54 Ordered Complete Blood Co unt w/Auto AM LABS Lab 05/24/20 04:00 Ordered Comprehensive Met abolic Panel AM LA BS Lab 05/24/20 04:00 Ordered Labs from last 24 hours 05/23/20 05/23/20 05:49 05:49 WBC 5.3 RBC 3.45 L Hgb 11.1 L Hct 34.1 L MCV 98.8 MCH 32.2 MCHC 32.6 RDW 11.9 L Plt Count 199 MPV 10.7 H Neut % (Auto) 53.0 Lymph % (Auto) 32.3 [place] % (Auto) 9.8 Eos % (Auto) 4.3 Baso % (Auto) 0.4 Neut # (Auto) 2.80 Lymph # (Auto) 1.7 [place] # (Auto) 0.5 Eos # (Auto) 0.2 Baso # (Auto) 0.0 Nucleated RBC % (a uto) 0 Nucleated RBCs # 0.0 Sodium 138 Potassium 4.1 Chloride 103 Carbon Dioxide 27 Anion Gap 12.1 BUN 10 Creatinine 0.7 GFR Calculation Not Reportable Glucose 92 Calculated Osmolal ity 285 Calcium 8.1 L Total Bilirubin 0.3 AST 14 ALT 8 Alkaline Phosphata se 65 Total Protein 5.9 L Albumin 3.3 L Globulin 2.6 Vitals: Last Vital Signs Temp 98.5 F 05/23/20 08:00 Pulse 77 05/23/20 08:00 Resp 18 05/23/20 08:00 BP 150/71 05/23/20 08:00 Pulse Ox 97 05/23/20 08:00 Discharge Plan Discharge Patient Disposition: Home Condition: Stable Prescriptions: New Lipitor 40 mg tablet 40 mg PO DAILY Qty: 30 RF: 0 Continued metoprolol tartrate 25 mg tablet 25 mg PO DAILY@0800 RF: 0 hydrochlorothiazide 12.5 mg tablet 12.5 mg PO DAILY@0800 RF: 0 levothyroxine 88 mcg tablet 88 mcg PO DAILY@0600 RF: 0 meclizine 12.5 mg tablet 12.5 mg PO DAILY PRN (Reason: Dizziness) RF: 0 temazepam 7.5 mg capsule 7.5 mg PO DAILY@1999 RF: 0 gabapentin 100 mg capsule 100 mg PO BID@ RF: 0 beiwfoex-vmrcfqj-lozz-lutein Tablet 1 tab PO DAILY@0800 RF: 0 magnesium 1 tab PO DAILY@0800 RF: 0 aspirin 81 mg Tablet,Chewable 81 mg PO EVERY OTHER DAY RF: 0 losartan 100 mg Tablet 100 mg PO DAILY@0800 RF: 0 fluticasone propionate 50 mcg/actuation spray,suspension 2 spray INTRANASAL DAILY PRN (Reason: Nasal Congestion) RF: 0 Held Eliquis 5 mg tablet 5 mg PO BID Qty: 60 RF: 0 Hold Instructions: Resume on 05/27/20. Discharge Orders: Discharge Order (Routine); Ordered 05/23/20 Ordered By: Dalton Hdez Other Ambulatory Orders: DME: Anthony (Order) Location: None Selected Ordered By: Dalton Hdez Referrals: Michelle Bryson MD [Physician] - 1 week (Dr. Bryson's office will call you with an appointment.) Shalini Reyes MD [Physician] - 05/27/20 9:00 am Discharge Diet: Low Salt Discharge Activity: Resume usual activity and Increase activity as tolerated Patient Instructions: Atorvastatin (By mouth), Syncope, Hypertension, Hypothyroidism (DC), Ischemic Stroke (DC), Stroke Stoplight Discharge Attestations Time Spent in Discharge Care*: greater than 30 min Specific Discharge Activities: educating patient, educating and/or supporting family/caregiver, discussing with pcp/other providers, discussing with casey saw operator/social workers/dc planners, documenting/other paperwork and evaluating patient/reviewing data Status at Discharge: Cognitive status at discharge: cognitively intact, Behavioral status at discharge: cooperative, Functional status at discharge: uses cane/walker Overall status at discharge: patient is progressing back to baseline Quality Metrics Clinical Quality Measures During this hospital stay, did patient experience: Stroke Contraindication to Antithrombotic: Antithrombotic prescribed Contraindication to Anticoagulation: Anticoagulation prescribed Contraindication to Statin: Statin prescribed Coding Level of Care Code 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
== END 2020-05-23 14:00 | disposition home or self-care (01) | DRG 62 ==
LOC: ER 12:29 → ICU 16:46 → MEDSURG 05-22 17:47
PROVIDERS: Admitting Provider Internal Medicine; Emergency Provider Family Medicine; PCP Family Medicine; Visit Provider Internal Medicine
DX: I63.511 Cerebral infarction due to unspecified occlusion or stenosis of right middle cerebral artery (principal); I24.8 Other forms of acute ischemic heart disease; R29.810 Facial weakness; R29.706 NIHSS score 6; I48.91 Unspecified atrial fibrillation; E03.9 Hypothyroidism, unspecified; I10 Essential (primary) hypertension; R55 Syncope and collapse; Z79.82 Long term (current) use of aspirin
CPT/HCPCS: 12345; 36415; 36416; 70450; 71045; 80053; 80306; 81003; 82962; 83735; 83880; 84443; 84484; 85025; 85378; 85610; 85730; 92523; 92610; 93005; 93271; 93306; 93880; 96374; 96375; 97110; 97161; 97530; 99283; 99285; C8929; J2997; J3490; Q9956

== ENCOUNTER 2020-06-10 14:22 | Outpatient (CLI) | payer MEDICARE, OTHER, SELFPAY ==
--- NOTE | 2020-06-10 15:45 | CT_ITS ---
WS: [id number] Exam: CT head wo con* [id number] Date/Time of Exam: 06/10/2020 2:46 PM Reason For Exam: I63.9 - Cerebral infarction, unspecified DLP: 925.[address] scans at [facility] use at least one of these dose optimization techniques: automat ed exposure control; mA and/or kV adjustment per patient size (includes targeted exams where dose is matched to clinical indication); or iterative reconstruction. Comparison 05/22/2020. No sign of acute intracranial bleed or space-occupying mass. Diffuse atrophy and microvascular ischem ic changes are noted. Old lacunar infarcts noted in the bilateral external capsules. The ventricles a nd basal cisterns are normal in size. No extra-axial fluid collections are seen. The skull is unremar kable. The facial sinuses and mastoids are clear. No change since prior study. CT/CT head wo con* [id number] IMPRESSION: 1. No acute intracranial process. No change. 2. Healing scalp laceration along the left frontal region high along the convex ity the skull.
== END 2020-06-10 14:23 | disposition home or self-care (01) ==
LOC: RADWPI 14:26
PROVIDERS: PCP Family Medicine; Visit Provider Internal Medicine Cardiovascular Disease
DX: G62.9 Polyneuropathy, unspecified (principal); Z86.73 Personal history of transient ischemic attack (TIA), and cerebral infarction without residual deficits; R55 Syncope and collapse
CPT/HCPCS: 70450; 99204

== ENCOUNTER 2020-07-26 17:14 | Emergency (ER) | payer MEDICARE, OTHER, SELFPAY ==
[2020-07-26] VITALS (7 sets, daily range): BP systolic 115–166; BP diastolic 62–103; PULSE 85–122; RESP 12–22; TEMP 36.6; O2SAT 96–99; BMI 29.1
--- NOTE | 2020-07-26 03:22 | XRR_ITS ---
PROCEDURE INFORMATION: Exam: XR Chest Exam date and time: 07/26/2020 8:27 PM Age: 84 years old Clinical indication: Other: Palpatations; Prior surgery; Additional info: Palpitations TECHNIQUE: Imaging protocol: XR of the chest. Views: 1 view. COMPARISON: CR XR chest 1V portable [id number] 05/19/2020 2:19 PM FINDINGS: Tubes, catheters and devices: Surgical clips project over the chest bilaterally. Lungs: No focal consolidation. Trace scarring. Pleural spaces: Unremarkable. No pleural effusion. No pneumothorax. Heart/Mediastinum: The cardiac shadow is normal in size. Bones/joints: No acute abnormality. XR/XR chest 1V portable [id number] IMPRESSION: No acute findings.
--- NOTE | 2020-07-26 17:23 | ECG_ITS ---
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 Measurements Intervals [place] Rate: 121 P: [place]: QRS: 14 QRSD: 85 T: 76 QT: 291 QTc: 414 Interpretive Statements ATRIAL FIBRILLATION WITH RAPID VENTRICULAR RESPONSE NONSPECIFIC T-WAVE ABNORMALITY ABNORMAL RHYTHM ECG Compared to ECG 05/21/2020 13:56:09 T-wave abnormality now present Sinus bradycardia no longer present Electronically Signed On 07-28-2020 12:11:05 CDT by Shalini Reyes M.D. [id number]
--- NOTE | 2020-07-26 17:28 | W.ED.ARRPALP ---
Documented by User: Satnam Montero DO 07/30/20 07:57 HPI - Arrhythmia/Palpitations General: Chief Complaint: Arrhythmia/Palpitations Stated Complaint: AFIB WITH RVR Time Seen by Provider: 07/26/20 17:18 History of Present Illness: HPI narrative: 84-year-old female who presents to the emergency room with complaints of rapid heart rate. She came home by EMS from her primary care clinic. Patient is a known history of atrial fibrillation was previously on apixaban but that stopped because of cost and instead she has been taking Plavix additionally she had been on metoprolol for rate control that was stopped and she was changed to amlodipine 2.5 mg daily. She felt like she had a rapid heart rate and fluttering and then today when in the clinic was noted to be in A. fib with RVR on arrival here she is in the 120s to 130s sometimes dipping down into the low 100s. She is otherwise stable. MD complaint: rapid heart beat and heart racing Onset (ago): hour(s) Duration: constant Severity: mild Context: occurred during rest Arrhythmia history: atrial fibrillation Associated symptoms: Deny anxiety, cough, diaphoresis, muscle cramps, nausea, paresthesias, pre-syncope, sense of impending doom, short of breath, syncope or vomiting Review of Systems Const: Denies: diaphoresis ENMT: Denies: throat pain, ear or mastoid pain, nasal discharge or nasal congestion Card: Denies: syncope or pre-syncope Resp: Denies: dyspnea, productive cough or non-productive cough GI: Denies: nausea or vomiting : Denies: flank pain, difficulty voiding, dysuria, urinary frequency or urinary urgency Musc: Denies: muscle cramps Skin/Breast: Denies: rash or pruritus Psych: Denies: anxiety PFSH ED PFSH: Medical History Acute CVA (cerebrovascular accident) Right middle cerebral artery stroke Atrial fibrillation CVA (cerebral vascular accident) Elevated troponin Hypertension Hypothyroidism Neuropathy Recurrent syncope Right middle cerebral artery stroke Family History Mother CAD (coronary artery disease) Stented coronary artery Denies family history of Diabetes Social History (Reviewed 07/26/20 @ 17:29 by JANA Kaplan Smoking and tobacco status: never smoked Alcohol intake: never History of recent travel: No Physical Exam Const: COMMON NORMALS: no acute distress GENERAL APPEARANCE: cooperative and comfortable ORIENTATION/CONSCIOUSNESS: Yes awake, Yes oriented to person, Yes oriented to place and Yes oriented to time HENMT: COMMON NORMALS: normocephalic, atraumatic and hearing grossly normal bilaterally HEAD & SCALP: normocephalic and atraumatic Neck/C-Spine: COMMON NORMALS: no JVD Resp: COMMON NORMALS: normal respiratory effort, No retractions, No use of accessory muscles and clear to auscultation bilaterally AUSCULTATION: clear to auscultation bilaterally Cardio: COMMON NORMALS: no JVD, regular rate, regular rhythm and No murmurs present (Cardio) RATE: regular rate RHYTHM: regular rhythm GI: COMMON NORMALS: Soft to palpation and No hepatosplenomegaly present AUSCULTATION: Yes normoactive bowel sounds PALPATION: Yes Soft to palpation, No Tenderness to palpation present (GI), No Guarding due to palpation present (GI) and Yes No hepatosplenomegaly present Extremity: COMMON NORMALS: normal to inspection, capillary refill normal, no clubbing, cyanosis or edema, no calf tenderness and no pedal edema Neuro: SENSORIUM/ORIENTATION: Yes oriented to person, Yes oriented to place and Yes oriented to time Skin: COMMON NORMALS: no rashes or lesions noted GENERAL SKIN EXAM: no rashes or lesions noted Course Vital Signs: Vital signs: Vital Signs Temperature 97.9 F 07/26/20 17:19 Pulse Rate 86 07/26/20 20:00 Respiratory Rate 22 H 07/26/20 20:00 Blood Pressure 124/75 07/26/20 20:00 Pulse Oximetry 96 07/26/20 20:00 MDM - Arrhythmia/Palpitations MDM Narrative: Medical decision making narrative: Care turned over to Dr. Nam at change of shift see his notes for final diagnosis and disposition. Lab Data: Labs: Lab Results 07/26/20 07/26/20 07/26/20 Range/Units 18:17 18:17 18:17 WBC 5.0 (4.0-10.0) 10^3/ uL RBC 3.89 L (4.1-5.3) 10^6/u L Hgb 12.6 (11.5-15.3) g/dL Hct 37.4 (37.0-47.0) % MCV 96.1 (81-99) fL MCH 32.4 (28.0-34.0) pg MCHC 33.7 (30.0-36.0) g/dL RDW 11.5 L (12.1-15.1) % Plt Count 228 (130-400) 10^3/c mm MPV 9.1 (7.4-10.4) fL Neut % (Auto) 68.4 % Lymph % (Auto) 19.4 % [place] % (Auto) 10.4 % Eos % (Auto) 1.2 % Baso % (Auto) 0.4 % Neut # (Auto) 3.42 (1.8-7.7) 10^3/u L Lymph # (Auto) 1.0 (0.8-4.8) 10^3/u L [place] # (Auto) 0.5 (0.2-0.9) 10^3/u L Eos # (Auto) 0.1 (0.0-0.8) 10^3/u L Baso # (Auto) 0.0 (0.0-0.1) 10^3/u L Nucleated RBC % (a uto) 0 % Nucleated RBCs # 0.0 /100WBC Sodium 129 L (136-145) mmol/L Potassium 3.6 (3.5-5.1) mmol/L Chloride 95 L (98-107) mmol/L Carbon Dioxide 26 (22-29) mmol/L Anion Gap 11.6 (5-19) BUN 13 (8-23) mg/dL Creatinine 0.7 (0.5-0.9) mg/dL GFR Calculation Not Reportable Glucose 118 H (65-115) mg/dL Calculated Osmolal ity 269 L (285-295) mOsm/k g Calcium 8.0 L (8.5-10.5) mg/dL Total Bilirubin 0.3 (0.15-1.2) mg/dL AST 29 (0-32) U/L ALT 21 (0-33) U/L Alkaline Phosphata se 83 (35-105) IU/L Troponin T Baselin e 23 H (0-10) ng/L Total Protein 6.7 (6.6-8.7) g/dL Albumin 4.1 (3.5-5.2) g/dL Globulin 2.6 (1.3-4.6) g/dL Discharge Plan Discharge Patient Disposition: Home Clinical Impression: Atrial fibrillation Qualifiers: Atrial fibrillation type: persistent (not longstanding) Qualified Code(s): I48.19 - Other persistent atrial fibrillation Condition: Stable Prescriptions: New metoprolol tartrate 25 mg tablet 25 mg PO BID Qty: 60 RF: 0 Discontinued amlodipine 2.5 mg tablet 2.5 mg PO DAILY@0800 RF: 0 No Action levothyroxine 88 mcg tablet 88 mcg PO DAILY@0600 RF: 0 meclizine 12.5 mg tablet 12.5 mg PO DAILY PRN (Reason: Dizziness) RF: 0 hydrochlorothiazide 12.5 mg tablet 25 mg PO DAILY@0800 RF: 0 temazepam 7.5 mg capsule 7.5 mg PO DAILY@1999 RF: 0 gabapentin 100 mg capsule 100 mg PO BID@ RF: 0 ajbbazpr-bwewyuc-meuj-lutein Tablet 1 tab PO DAILY@0800 RF: 0 losartan 100 mg Tablet 100 mg PO DAILY@0800 RF: 0 fluticasone propionate 50 mcg/actuation spray,suspension 2 spray INTRANASAL DAILY PRN (Reason: Nasal Congestion) RF: 0 fluoxetine 10 mg Tablet 10 mg PO DAILY@0800 RF: 0 clopidogrel 75 mg tablet 75 mg PO DAILY@0800 RF: 0 Lumigan 0.01 % Drops 1 drp OPHTHALMIC (EYE) DAILY@1999 RF: 0 Lipitor 40 mg tablet 40 mg PO DAILY@1999 RF: 0 Discharge Orders: Discharge ED (Routine); Ordered 07/26/20 Ordered By: Ishan Nam Referrals: Zach Camp DO [Primary Care Provider] - 4-7 days Discharge Diet: Advance as tolerated Discharge Activity: Resume usual activity Patient Instructions: Atrial Fibrillation (ED) Activity Restrictions/Additional Instructions: Discontinue your amlodipine. Instead, use the medication you were given, as it will help control your blood pressure as well as your heart rate. Follow-up with your doctor. Return for repeated episodes of palpitations or heart racing, chest discomfort, shortness of breath, mental status changes, or any other concerning symptoms Coding Level of Care Code ED Medical Assistant Ob Gyn for Chg Fwd Exam Comprehensive Documented by User: Ishan Nam DO 07/27/20 02:07 HPI - Arrhythmia/Palpitations General: Chief Complaint: Arrhythmia/Palpitations Stated Complaint: AFIB WITH RVR Time Seen by Provider: 07/26/20 17:18 PFSH ED PFSH: Medical History Acute CVA (cerebrovascular accident) Right middle cerebral artery stroke Atrial fibrillation CVA (cerebral vascular accident) Elevated troponin Hypertension Hypothyroidism Neuropathy Recurrent syncope Right middle cerebral artery stroke Family History Mother CAD (coronary artery disease) Stented coronary artery Denies family history of Diabetes Social History Smoking and tobacco status: never smoked Alcohol intake: never History of recent travel: No Course Vital Signs: Vital signs: Vital Signs Temperature 97.9 F 07/26/20 17:19 Pulse Rate 86 07/26/20 20:00 Respiratory Rate 22 H 07/26/20 20:00 Blood Pressure 124/75 07/26/20 20:00 Pulse Oximetry 96 07/26/20 20:00 MDM - Arrhythmia/Palpitations MDM Narrative: Medical decision making narrative: 84-year-old female checked out to me at shift change by Dr. Montero. This lady had had palpitations. She has a history of atrial fibrillation. She is on Plavix for anticoagulation because evidently she cannot afford her Eliquis. She is now on amlodipine for control of her hypertension, but is not on a rate control medicine. She was given IV and oral metoprolol here with good control of her rate. Her labs are benign. Her chest x-ray is essentially normal. She will be allowed home. Lab Data: Labs: Lab Results 07/26/20 07/26/20 07/26/20 Range/Units 18:17 18:17 18:17 WBC 5.0 (4.0-10.0) 10^3/ uL RBC 3.89 L (4.1-5.3) 10^6/u L Hgb 12.6 (11.5-15.3) g/dL Hct 37.4 (37.0-47.0) % MCV 96.1 (81-99) fL MCH 32.4 (28.0-34.0) pg MCHC 33.7 (30.0-36.0) g/dL RDW 11.5 L (12.1-15.1) % Plt Count 228 (130-400) 10^3/c mm MPV 9.1 (7.4-10.4) fL Neut % (Auto) 68.4 % Lymph % (Auto) 19.4 % [place] % (Auto) 10.4 % Eos % (Auto) 1.2 % Baso % (Auto) 0.4 % Neut # (Auto) 3.42 (1.8-7.7) 10^3/u L Lymph # (Auto) 1.0 (0.8-4.8) 10^3/u L [place] # (Auto) 0.5 (0.2-0.9) 10^3/u L Eos # (Auto) 0.1 (0.0-0.8) 10^3/u L Baso # (Auto) 0.0 (0.0-0.1) 10^3/u L Nucleated RBC % (a uto) 0 % Nucleated RBCs # 0.0 /100WBC Sodium 129 L (136-145) mmol/L Potassium 3.6 (3.5-5.1) mmol/L Chloride 95 L (98-107) mmol/L Carbon Dioxide 26 (22-29) mmol/L Anion Gap 11.6 (5-19) BUN 13 (8-23) mg/dL Creatinine 0.7 (0.5-0.9) mg/dL GFR Calculation Not Reportable Glucose 118 H (65-115) mg/dL Calculated Osmolal ity 269 L (285-295) mOsm/k g Calcium 8.0 L (8.5-10.5) mg/dL Total Bilirubin 0.3 (0.15-1.2) mg/dL AST 29 (0-32) U/L ALT 21 (0-33) U/L Alkaline Phosphata se 83 (35-105) IU/L Troponin T Baselin e 23 H (0-10) ng/L Total Protein 6.7 (6.6-8.7) g/dL Albumin 4.1 (3.5-5.2) g/dL Globulin 2.6 (1.3-4.6) g/dL Discharge Plan Discharge Patient Disposition: Home Clinical Impression: Atrial fibrillation Qualifiers: Atrial fibrillation type: persistent (not longstanding) Qualified Code(s): I48.19 - Other persistent atrial fibrillation Condition: Stable Prescriptions: New metoprolol tartrate 25 mg tablet 25 mg PO BID Qty: 60 RF: 0 Discontinued amlodipine 2.5 mg tablet 2.5 mg PO DAILY@0800 RF: 0 No Action levothyroxine 88 mcg tablet 88 mcg PO DAILY@0600 RF: 0 meclizine 12.5 mg tablet 12.5 mg PO DAILY PRN (Reason: Dizziness) RF: 0 hydrochlorothiazide 12.5 mg tablet 25 mg PO DAILY@799 RF: 0 temazepam 7.5 mg capsule 7.5 mg PO DAILY@1999 RF: 0 gabapentin 100 mg capsule 100 mg PO BID@ RF: 0 xrhkwdgs-cnuaeou-mync-lutein Tablet 1 tab PO DAILY@08 RF: 0 losartan 100 mg Tablet 100 mg PO DAILY@0800 RF: 0 fluticasone propionate 50 mcg/actuation spray,suspension 2 spray INTRANASAL DAILY PRN (Reason: Nasal Congestion) RF: 0 fluoxetine 10 mg Tablet 10 mg PO DAILY@0800 RF: 0 clopidogrel 75 mg tablet 75 mg PO DAILY@799 RF: 0 Lumigan 0.01 % Drops 1 drp OPHTHALMIC (EYE) DAILY@1999 RF: 0 Lipitor 40 mg tablet 40 mg PO DAILY@1999 RF: 0 Discharge Orders: Discharge ED (Routine); Ordered 07/26/20 Ordered By: Ishan Nam Referrals: Zach Camp DO [Primary Care Provider] - 4-7 days Discharge Diet: Advance as tolerated Discharge Activity: Resume usual activity Patient Instructions: Atrial Fibrillation (ED) Activity Restrictions/Additional Instructions: Discontinue your amlodipine. Instead, use the medication you were given, as it will help control your blood pressure as well as your heart rate. Follow-up with your doctor. Return for repeated episodes of palpitations or heart racing, chest discomfort, shortness of breath, mental status changes, or any other concerning symptoms Coding Level of Care Code ED Medical Assistant Ob Gyn for Chg Fwd Exam Comprehensive
[2020-07-26] MEDS: metoprolol tartrate 1 mg/1 mL SDV 5 mL 5 MG IV (18:04)
[2020-07-26] MEDS: metoprolol tartrate 50 mg Tablet PO (18:04)
[2020-07-26 18:23] LABS: Basophils % 0.4 %; Eosinophils # 0.1 10^3/uL (0.0-0.8); Eosinophils % 1.2 %; Hematocrit 37.4 % (37.0-47.0); Hemoglobin 12.6 g/dL (11.5-15.3); Lymphocytes % 19.4 %; Mean Corpuscular HGB Conc 33.7 g/dL (30.0-36.0); Mean Corpuscular Hemoglobin 32.4 pg (28.0-34.0); Mean Corpuscular Volume 96.1 fL (81-99); Mean Platelet Volume 9.1 fL (7.4-10.4); Monocytes # 0.5 10^3/uL (0.2-0.9); Monocytes % 10.4 %; Neutrophils # 3.42 10^3/uL (1.8-7.7); Neutrophils % 68.4 %; Nucleated Red Blood Cells % 0 %; Platelet Count 228 10^3/cmm (130-400); Red Blood Count 3.89 10^6/uL (4.1-5.3); Red Cell Distribution Width 11.5 % (12.1-15.1)
[2020-07-26 18:42] LABS: Alanine Aminotransferase 21 U/L (0-33); Albumin Level 4.1 g/dL (3.5-5.2); Alkaline Phosphatase 83 IU/L (35-105); Anion Gap 11.6 (5-19); Aspartate Amino Transferase 29 U/L (0-32); Blood Urea Nitrogen 13 mg/dL (8-23); Carbon Dioxide 26 mmol/L (22-29); Chloride 95 mmol/L (98-107); Globulin 2.6 g/dL (1.3-4.6); Glucose 118 mg/dL (65-115); Osmolality Calculated 269 mOsm/kg (285-295); Potassium 3.6 mmol/L (3.5-5.1); Sodium 129 mmol/L (136-145); Total Bilirubin 0.3 mg/dL (0.15-1.2); Total Protein 6.7 g/dL (6.6-8.7)
[2020-07-26 18:43] LABS: Troponin(5th) Baseline 23 ng/L (0-10)
--- NOTE | 2020-07-26 19:23 | ECG_ITS ---
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 Measurements Intervals [place] Rate: 85 P: [place]: QRS: 5 QRSD: 85 T: 45 QT: 356 QTc: 424 Interpretive Statements ATRIAL FIBRILLATION ABNORMAL RHYTHM ECG Compared to ECG 07/26/2020 17:27:14 T-wave abnormality no longer present Electronically Signed On 07-28-2020 12:21:50 CDT by Shalini Reyes M.D. [id number]
== END 2020-07-26 21:42 | disposition home or self-care (01) ==
PROVIDERS: Family Medicine; Emergency Provider Emergency Medicine; PCP Family Medicine
DX: I48.19 Other persistent atrial fibrillation (principal); Z79.02 Long term (current) use of antithrombotics/antiplatelets; Z86.73 Personal history of transient ischemic attack (TIA), and cerebral infarction without residual deficits; I10 Essential (primary) hypertension
CPT/HCPCS: 36415; 71045; 80053; 84484; 85025; 93005; 96374; 99284; J3490

== ENCOUNTER 2020-11-21 22:16 | Inpatient (IN) | payer MEDICARE, OTHER, SELFPAY ==
[2020-11-21 22:16] VITALS: BP 167/74; PULSE 81; RESP 16; TEMP 38.7; O2SAT 96; BMI 29.1
--- NOTE | 2020-11-21 22:19 | XRR_ITS ---
PROCEDURE INFORMATION: Exam: XR Chest Exam date and time: 11/21/2020 10:19 PM Age: 84 years old Clinical indication: Cough and fever and other: Fatigue/ fall; Prior surgery; Surgery type: Breast TECHNIQUE: Imaging protocol: XR of the chest. Views: 1 view. COMPARISON: CR XR chest 1V portable [id number] 07/26/2020 8:30 PM FINDINGS: Lungs: Unremarkable. No consolidation. Pleural spaces: Unremarkable. No pleural effusion. No pneumothorax. Heart/Mediastinum: Mild cardiomegaly. Bones/joints: Unremarkable. XR/XR chest 1V portable [id number] IMPRESSION: 1. Negative for infiltrate 2. Mild cardiomegaly.
--- NOTE | 2020-11-21 22:19 | ECG_ITS ---
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
--- NOTE | 2020-11-21 22:19 | CTR_ITS ---
PROCEDURE INFORMATION: Exam: CT Head Without Contrast Exam date and time: 11/21/2020 10:19 PM Age: 84 years old Clinical indication: Injury or trauma; Fall; Blunt trauma (contusions or hematomas); Altered mental status/memory loss; Additional info: AMS TECHNIQUE: Imaging protocol: Computed tomography of the head without contrast. Radiation optimization: All CT scans at this facility use at least one of these dose optimization techniques: automated exposure control; mA and/or kV adjustment per patient size (includes targeted exams where dose is matched to clinical indication); or iterative reconstruction. COMPARISON: CT head wo con* [id number] 06/10/2020 3:24 PM RADIATION DOSE METRICS: Total DLP (mGy-cm): 1451.81 FINDINGS: Brain: Normal. No hemorrhage. Unremarkable white matter. No mass effect. Cerebral ventricles: No ventriculomegaly. Paranasal sinuses: Visualized sinuses are unremarkable. No fluid levels. Mastoid air cells: Visualized mastoid air cells are well aerated. Bones/joints: Unremarkable. No acute fracture. Soft tissues: Unremarkable. CT/CT head wo con* [id number] IMPRESSION: Negative for intracranial hemorrhage or mass effect. Radiation Dose CTDIVOL = (mGy): DLP = 1451.81 (mGy-cm)
[2020-11-21 22:20] VITALS: BP 167/74; PULSE 86; RESP 18; O2SAT 94
[2020-11-21 22:31] VITALS: BP 167/74; PULSE 82; RESP 16; TEMP 38.7; O2SAT 96
--- NOTE | 2020-11-21 22:32 | ED_ITS ---
HPI - Fall General: Chief Complaint: Fall Stated Complaint: FALL Time Seen by Provider: 11/21/20 22:19 Source: patient Mode of arrival: ambulatory Limitations: no limitations History of Present Illness: HPI Narrative: 84-year-old female who called EMS tonight for weakness and having a fall. Patient states she is also had body aches and cough. She is febrile here of 101. She denies any vomiting or diarrhea. Denies any chest pain. She states that today she has had difficulty walking due to her weakness. EMS states that she had a syncopal event that lasted seconds. Associated symptoms-after fall: Denies abdominal pain, chest pain or neck pain Review of Systems Const: Reports: fever(s), chills and body aches Eyes: Denies: blurry vision or eye discomfort ENMT: Denies: throat pain or dental pain Card: Denies: chest pain Resp: Reports: non-productive cough GI: Denies: abdominal pain, nausea, vomiting or diarrhea : Denies: dysuria Musc: Denies: neck pain or back pain Skin/Breast: Denies: rash Neuro: Reports: weakness in extremities Psych: Denies: depression Mo/Lymph: Denies: easy bruising All/Imm: Denies: urticaria PFSH ED PFSH: Medical History Acute CVA (cerebrovascular accident) Right middle cerebral artery stroke Anxiety Atrial fibrillation CVA (cerebral vascular accident) Elevated troponin Hypertension Hypothyroidism Hypothyroidism Neuropathy Recurrent syncope 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 Family History Mother CAD (coronary artery disease) Stented coronary artery Denies family history of Diabetes Social History Smoking and tobacco status: never smoked Alcohol intake: never History of recent travel: No Physical Exam Const: COMMON NORMALS: no acute distress, patient oriented x3 and healthy appearing HENMT: COMMON NORMALS: normocephalic and atraumatic HEAD & SCALP: normocephalic and atraumatic Eye: COMMON NORMALS: Equal, round and reactive pupils present and EOMs intact bilaterally PUPIL: Yes Equal, round and reactive pupils present Neck/C-Spine: COMMON NORMALS: full ROM and supple Chest: COMMONS NORMALS: normal inspection of the chest and normal palpation of entire chest wall Resp: COMMON NORMALS: normal respiratory effort, No retractions, No use of accessory muscles and clear to auscultation bilaterally AUSCULTATION: clear to auscultation bilaterally Cardio: COMMON NORMALS: regular rate, regular rhythm and No murmurs present (Cardio) RATE: regular rate RHYTHM: regular rhythm GI: COMMON NORMALS: Normal to inspection, nondistended, normoactive bowel sounds present, Soft to palpation, non-tender and no masses PALPATION: Yes Soft to palpation Extremity: COMMON NORMALS: normal to inspection and full ROM Neuro: COMMON NORMALS: patient oriented x3, moves all extremities and no focal motor deficits Psych: COMMON NORMALS: mental status grossly normal, Normal thought process present and cooperative THOUGHT PROCESS: Normal thought process present Skin: COMMON NORMALS: no rashes or lesions noted and no wounds GENERAL SKIN EXAM: no rashes or lesions noted Course Vital Signs: Vital signs: Vital Signs Temperature 100.5 F H 11/21/20 23:38 Pulse Rate 77 11/22/20 00:00 Respiratory Rate 18 11/22/20 00:00 Blood Pressure 150/64 11/22/20 00:00 Pulse Oximetry 95 11/22/20 00:00 MDM - Fall MDM Narrative: Medical decision making narrative: There is a fever along with weakness. No source was located for her fever. Patient is at baseline here and has no signs of meningitis. Patient's blood work here is all normal. Will get blood cultures. Her initial Covid was negative and will do a PCR. I spoke to the hospitalist who will admit this patient still is having weakness. Lab Data: Labs: Lab Results 11/21/20 11/21/20 11/21/20 Range/Units 22:44 22:51 22:51 WBC 8.6 (4.0-10.0) 10^3/ uL RBC 3.74 L (4.1-5.3) 10^6/u L Hgb 12.4 (11.5-15.3) g/dL Hct 37.1 (37.0-47.0) % MCV 99.2 H (81-99) fl MCH 33.2 (28.0-34.0) pg MCHC 33.4 (30.0-36.0) g/dL RDW 12.1 (12.1-15.1) % Plt Count 170 (130-400) 10^3/c mm MPV 10.2 (7.4-10.4) fL Neut % (Auto) 86.3 % Lymph % (Auto) 6.3 % [place] % (Auto) 5.3 % Eos % (Auto) 1.4 % Baso % (Auto) 0.1 % Neut # (Auto) 7.43 (1.8-7.7) 10^3/u L Lymph # (Auto) 0.5 L (0.8-4.8) 10^3/u L [place] # (Auto) 0.5 (0.2-0.9) 10^3/u L Eos # (Auto) 0.1 (0.0-0.8) 10^3/u L Baso # (Auto) 0.0 (0.0-0.1) 10^3/u L Nucleated RBC % (a uto) 0 % Nucleated RBCs # 0.0 /100WBC Sodium 130 L (136-145) mmol/L Potassium 4.2 (3.5-5.1) mmol/L Chloride 92 L (98-107) mmol/L Carbon Dioxide 25 (22-29) mmol/L Anion Gap 17.2 (5-19) BUN 12 (8-23) mg/dL Creatinine 0.8 (0.5-0.9) mg/dL GFR Calculation Not Reportable Glucose 105 (65-115) mg/dL Calculated Osmolal ity 270 L (285-295) mOsm/k g Lactic Acid (0.5-2.2) mmol/L Calcium 8.5 (8.5-10.5) mg/dL Total Bilirubin 0.6 (0.15-1.2) mg/dL AST 233 H (0-32) U/L ALT 232 H (0-33) U/L Alkaline Phosphata se 226 H (35-105) IU/L C-Reactive Protein 21.5 H (0.0-4.9) mg/L NT-Pro-B Natriuret Pep 170 (0-450) pg/mL Total Protein 7.0 (6.6-8.7) g/dL Albumin 3.9 (3.5-5.2) g/dL Globulin 3.1 (1.3-4.6) g/dL Urine Color (Yellow) Urine Appearance (CLEAR) Urine pH (5-7) Ur Specific Gravit y (1.005-1.030) Urine Protein (Negative) Urine Glucose (UA) (Normal) Urine Ketones (Negative) Urine Blood (Negative) Urine Nitrate (Negative) Urine Bilirubin (Negative) Urine Urobilinogen (Negative) mg/dL Ur Leukocyte Jody ase (Negative) SARS-CoV-2 Ag (Rap id) Negative (Negative) 11/21/20 11/21/20 Range/Units 22:51 23:36 WBC (4.0-10.0) 10^3/ uL RBC (4.1-5.3) 10^6/u L Hgb (11.5-15.3) g/dL Hct (37.0-47.0) % MCV (81-99) fl MCH (28.0-34.0) pg MCHC (30.0-36.0) g/dL RDW (12.1-15.1) % Plt Count (130-400) 10^3/c mm MPV (7.4-10.4) fL Neut % (Auto) % Lymph % (Auto) % [place] % (Auto) % Eos % (Auto) % Baso % (Auto) % Neut # (Auto) (1.8-7.7) 10^3/u L Lymph # (Auto) (0.8-4.8) 10^3/u L [place] # (Auto) (0.2-0.9) 10^3/u L Eos # (Auto) (0.0-0.8) 10^3/u L Baso # (Auto) (0.0-0.1) 10^3/u L Nucleated RBC % (a uto) % Nucleated RBCs # /100WBC Sodium (136-145) mmol/L Potassium (3.5-5.1) mmol/L Chloride (98-107) mmol/L Carbon Dioxide (22-29) mmol/L Anion Gap (5-19) BUN (8-23) mg/dL Creatinine (0.5-0.9) mg/dL GFR Calculation Glucose (65-115) mg/dL Calculated Osmolal ity (285-295) mOsm/k g Lactic Acid 1.5 (0.5-2.2) mmol/L Calcium (8.5-10.5) mg/dL Total Bilirubin (0.15-1.2) mg/dL AST (0-32) U/L ALT (0-33) U/L Alkaline Phosphata se (35-105) IU/L C-Reactive Protein (0.0-4.9) mg/L NT-Pro-B Natriuret Pep (0-450) pg/mL Total Protein (6.6-8.7) g/dL Albumin (3.5-5.2) g/dL Globulin (1.3-4.6) g/dL Urine Color Yellow (Yellow) Urine Appearance Clear (CLEAR) Urine pH 6 (5-7) Ur Specific Gravit y 1.010 (1.005-1.030) Urine Protein Neg (Negative) Urine Glucose (UA) Norm (Normal) Urine Ketones 1+ H (Negative) Urine Blood Neg (Negative) Urine Nitrate Negative (Negative) Urine Bilirubin Neg (Negative) Urine Urobilinogen 1 H (Negative) mg/dL Ur Leukocyte Jody ase Negative (Negative) SARS-CoV-2 Ag (Rap id) (Negative) Imaging Data^: CXR: Attestation: I personally reviewed and interpreted this imaging study as follows: My impression: no acute abnormality EKG Data^: EKG 1: Attestation: I personally reviewed and interpreted this EKG as follows: EKG interpretation date: 11/21/20 EKG interpretation time: 22:42 Interpretation: nsr hr [address] or t wave abnormalities qrs 84 qtc 370 Discharge Plan Discharge Patient Disposition: Admitted As Inpatient Clinical Impression: Weakness Fever Qualifiers: Fever type: unspecified Qualified Code(s): R50.9 - Fever, unspecified Condition: Stable Coding Level of Care Code ED Health Counselor for g Fwd Exam Comprehensive
[2020-11-21] MEDS: acetaminophen 325 mg Tablet 650 MG PO (22:49)
[2020-11-21] MEDS: sodium chloride 0.9% 1,000 ML 999 ML IV (22:50)
[2020-11-21 23:01] LABS: Basophils % 0.1 %; Eosinophils # 0.1 10^3/uL (0.0-0.8); Eosinophils % 1.4 %; Hematocrit 37.1 % (37.0-47.0); Hemoglobin 12.4 g/dL (11.5-15.3); Lymphocytes # 0.5 10^3/uL (0.8-4.8); Lymphocytes % 6.3 %; Mean Corpuscular HGB Conc 33.4 g/dL (30.0-36.0); Mean Corpuscular Hemoglobin 33.2 pg (28.0-34.0); Mean Corpuscular Volume 99.2 fl (81-99); Mean Platelet Volume 10.2 fL (7.4-10.4); Monocytes # 0.5 10^3/uL (0.2-0.9); Monocytes % 5.3 %; Neutrophils # 7.43 10^3/uL (1.8-7.7); Neutrophils % 86.3 %; Nucleated Red Blood Cells % 0 %; Platelet Count 170 10^3/cmm (130-400); Red Blood Count 3.74 10^6/uL (4.1-5.3); Red Cell Distribution Width 12.1 % (12.1-15.1); White Blood Count 8.6 10^3/uL (4.0-10.0)
[2020-11-21 23:23] LABS: SARS Covid-2 Antigen Negative (Negative)
[2020-11-21 23:34] LABS: Lactic Sepsis W/Reflex 1.5 mmol/L (0.5-2.2)
[2020-11-21 23:38] VITALS: BP 167/74; PULSE 81; RESP 16; TEMP 38.1; O2SAT 96
[2020-11-21 23:41] LABS: Add Urine Microscopic? NO; Charge for UA Resulting for Rev
[2020-11-21 23:42] LABS: Bilirubin Urine Neg (Negative); Blood Urine Neg (Negative); Glucose Urine UA Norm (Normal); Ketones Urine 1+ (Negative); Leukocyte Esterase Urine Negative (Negative); Nitrate Urine Negative (Negative); Protein Urine Neg (Negative); Urine Appearance Clear (CLEAR); Urine Color Yellow (Yellow); Urobilinogen Urine 1 mg/dL (Negative); pH Urine 6 (5-7)
[2020-11-21 23:45] LABS: Alanine Aminotransferase 232 U/L (0-33); Albumin Level 3.9 g/dL (3.5-5.2); Alkaline Phosphatase 226 IU/L (35-105); Anion Gap 17.2 (5-19); Aspartate Amino Transferase 233 U/L (0-32); Blood Urea Nitrogen 12 mg/dL (8-23); C Reactive Protein 21.5 mg/L (0.0-4.9); Calcium 8.5 mg/dL (8.5-10.5); Carbon Dioxide 25 mmol/L (22-29); Chloride 92 mmol/L (98-107); Globulin 3.1 g/dL (1.3-4.6); Glucose 105 mg/dL (65-115); NT Pro B Type Natriuretic Pept 170 pg/mL (0-450); Osmolality Calculated 270 mOsm/kg (285-295); Potassium 4.2 mmol/L (3.5-5.1); Sodium 130 mmol/L (136-145); Total Bilirubin 0.6 mg/dL (0.15-1.2)
[2020-11-22] VITALS (13 sets, daily range): BP systolic 117–157; BP diastolic 55–68; PULSE 59–80; RESP 16–20; TEMP 36.6–37.9; O2SAT 94–100; BMI 29.1
[2020-11-22 02:42] LABS: Troponin(5th) Baseline 10 ng/L (0-10)
--- NOTE | 2020-11-22 03:19 | ECG_ITS ---
[facility] Test Date: 2020-11-22 Pat Name: Anh Kat Department: Room: EDIP Gender: Female Credit Department Manager: : 1935 Requested By: Kiya Narvaez Order Number: [id number] Reading MD: JESSICA RODRIGUEZ Measurements Intervals [place] Rate: 67 P: 64 WA: 193 QRS: 18 QRSD: 84 T: 47 QT: 383 QTc: 406 Interpretive Statements SINUS RHYTHM Compared to ECG 11/21/2020 22:42:07 Ventricular premature complex(es) no longer present Electronically Signed On 11-23-2020 20:19:05 CDT by JESSICA RODRIGUEZ [id number]
[2020-11-22 04:16] LABS: Troponin 5 2HR 9.84 ng/L (0-10)
[2020-11-22 04:20] LABS: Troponin 5 2HR Delta -0.16 ABS# (0-10)
--- NOTE | 2020-11-22 04:40 | P.HP_ITS ---
Providers/Chief Complaint Admitting Physician: Tonya Cortez MD Primary Care Provider: Zach Camp DO Chief Complaint: FALL History of Present Illness Anh Kat is a 84 year old female who presented to the emergency room after a fall at home. She was identified as having a fever up to 102.9. She has been very weak the last few days. Weakness is generalized rather than focal, both of her legs have given out a time or 2 but never one side over the other. Denied any speech abnormalities or vision changes. Simply legs giving out this evening. She has a history of recurrent syncope and dizziness, known atrial fibrillation. She had a stroke earlier this year but received TPA and did well. She has been dizzy the last few days but it has not been different than her usual dizziness, neck problem for her. The weakness however has been quite significant. She said she had plan to see her doctor on Wednesday to get an idea of what might be going on. Fever developed this evening and along with a fall led to her being brought in here. She had been treated with nitrofurantoin for urinary tract infection recently. Denies any ongoing urinary symptoms since completing that antibiotic. No nausea, vomiting or diarrhea. Has not had any respiratory symptoms to speak of. Does describe in addition to the weakness and general malaise. No complaints of chest pain. Does not know of any sick contacts with Covid. She was vaccinated but unclear exactly when the second dose was received, could have been as recently as within the last couple of weeks. After receiving some Tylenol and on arrival here, her temperature was 101.6. She had elevation in liver enzymes, normal white count with lymphopenia. Rapid Covid antigen was negative. Given persistent fever, weakness and the nonspecific abnormalities identified Covid PCR was sent out. This is Shey is being admitted to observation for further monitoring and follow-up. Review of Systems Const: Reports: fever(s), chills, fatigue and malaise ENMT: Denies: throat pain or nasal congestion Card: Reports: other (Has chronic dizziness); Denies: chest pain, palpitations or edema Resp: Denies: dyspnea, productive cough, non-productive cough or pain on inspiration GI: Denies: abdominal pain, nausea, vomiting, diarrhea or constipation : Denies: difficulty voiding or hematuria Musc: Reports: muscle weakness; Denies: joint swelling, joint redness or joint warmth Skin/Breast: Denies: rash or sores Neuro: Reports: weakness in extremities; Denies: headache(s) Psych: Denies: anxiety or depression Mo/Lymph: Denies: easy bleeding Medications/Allergies Home Medications Medication Instructions Recorded Confirmed Last Taken Type levothyroxine 88 mcg tablet 88 mcg PO DAILY@0600 08/30/19 09/26/20 07/26/20 H istory meclizine 12.5 mg tablet 12.5 mg PO DAILY PRN 08/31/19 09/26/20 Unknown History gabapentin 100 mg PO BID@05/19/20 09/26/20 07/26/20 History fluticasone propionate 2 spray INTRANASAL DAILY PRN 05/21/20 09/26/20 07/26/20 History hydrochlorothiazide 12.5 mg tablet 25 mg PO DAILY@0800 tab 06/28/20 09/26/20 07/26/20 History atorvastatin [Lipitor] 40 mg PO DAILY@199907/26/20 09/26/20 07/25/20 History clopidogrel 75 mg PO DAILY@0807/26/20 09/26/20 07/26/20 History metoprolol tartrate 25 mg tablet 12.5 mg PO DAILY tab 09/26/20 09/26/20 Unknown History amlodipine 5 mg tablet 5 mg PO DAILY #90 tab 10/21/20 Unknown Rx acetaminophen [Tylenol Extra 500 mg PO BEDTIME 11/22/20 11/22/20 Unknown History Strength] aspirin [Aspir-81] 81 mg PO ONCE 11/22/20 11/22/20 11/21/20 History glycerin [Artificial Tears 1 drp OPHTHALMIC (EYE) PRN 11/22/20 11/22/20 Unknown History (glycerin)] ketotifen fumarate [Allergy Eye 1 drp OPHTHALMIC (EYE) BID PRN 11/22/20 11/22/20 Unknown History (ketotifen)] latanoprost 1 drp OPHTHALMIC (EYE) QPM 11/22/20 11/22/20 Unknown History losartan 50 mg PO DAILY 11/22/20 11/22/20 Unknown History magnesium oxide 500 mg PO DAILY 11/22/20 11/22/20 Unknown History Allergies Allergy/AdvReac Type Severity Reaction Status Date / Time ranitidine [From Zantac] Allergy rash Verified 11/22/20 08:39 Sulfa (Sulfonamide Allergy rash Verified 11/22/20 08:39 Antibiotics) meperidine [From Demerol] AdvReac ADR-Vomitin Verified 11/22/20 08:39 g IV contrast Allergy Severe ALGY-Anaphy Uncoded 09/26/20 10:46 laxis PFSH Acute PFSH: Medical History (Updated 11/22/20 @ 08:38 by Tonya Cortez MD) Anxiety Atrial fibrillation CVA (cerebral vascular accident) History of breast cancer Hypertension Hypothyroidism Neuropathy Recurrent syncope Right middle cerebral artery stroke (~05/2020) Tachy-stacey syndrome Surgical History (Updated 11/22/20 @ 08:34 by Tonya Cortez MD) History of bilateral mastectomy History of breast reconstruction History of hysterectomy History of oophorectomy Family History (Updated 11/22/20 @ 08:37 by Tonya Cortez MD) Mother CAD (coronary artery disease) Stented coronary artery Dementia Advanced age Lived until 89 Denies family history of Diabetes Social History (Updated 11/22/20 @ 08:37 by Tonya Cortez MD) Smoking and tobacco status: never smoked Alcohol intake: never Substance/Drug Use: never Vitals/I&O/Wt Last Vital Signs Temp 100.5 F H 11/21/20 23:38 Pulse 59 L 11/22/20 03:32 Resp 16 11/22/20 03:32 BP 117/55 11/22/20 03:32 Pulse Ox 94 11/22/20 03:32 11/21/20 11/21/20 11/22/20 14:59 22:59 06:59 Intake Total 1000 / 1000 Balance 1000 / 1000 Weight last 48 hrs Weight 79.379 kg Physical Exam Narrative: EXAM NARRATIVE: Constitutional: Awake and alert, oriented x3 HEENT: Normocephalic, atraumatic, conjunctive a are a bit red, extraocular movements are intact, pupils reactive, nasopharynx is clear, speech is clear, mucous membranes are slightly dry Neck: Supple Respiratory: Clear to auscultation bilaterally Cardiovascular: Irregular rhythm Abdomen: Soft, nontender, nondistended Extremities: No pitting edema Skin: Dry, no acute rashes Neuro: Speech clear, face symmetric, moves all extremities Psych: Normal affect Data : 11/21/20 22:51 11/21/20 22:51 Micro: Microbiology 11/21/20 23:59 Blood Culture - Preliminary Blood SPECIMEN COLLECTED 11/21/20 22:51 Blood Culture - Preliminary Blood SPECIMEN COLLECTED A&P Assessment and plan (1) Fall at home: Due to weakness, this is different than her usual dizzy and syncopal spells by her description Status: Acute Qualifiers: Encounter type: initial encounter Qualified Code(s): W19.XXXA - Unspecified fall, initial encounter; Y92.009 - Unspecified place in unspecified non-institutional (private) residence as the place of occurrence of the external cause (2) Weakness: Progressing over the last few days, nonfocal, more in general Status: Acute (3) Fever: Started today, up to a T-max of 102.9 Status: Acute Qualifiers: Fever type: unspecified Qualified Code(s): R50.9 - Fever, unspecified (4) Atrial fibrillation: With a history of tachybradycardia syndrome and chronic dizziness, syncope episodes Status: Chronic Qualifiers: Atrial fibrillation type: paroxysmal Qualified Code(s): I48.0 - Paroxysmal atrial fibrillation (5) Hypertension: Status: Chronic Qualifiers: Hypertension type: essential hypertension Qualified Code(s): I10 - Essential (primary) hypertension (6) Hypothyroidism: Status: Chronic Qualifiers: Hypothyroidism type: unspecified Qualified Code(s): E03.9 - Hypothyroidism, unspecified (7) Anxiety: Status: Chronic (8) Neuropathy: Status: Chronic Additional A&P Information Observation admission Serial cardiac enzymes Telemetry monitoring Hold home metoprolol Continue home losartan, hydrochlorothiazide, amlodipine Continue home aspirin, Plavix, statin Continue as needed meclizine Monitor blood pressures for significant variation PT/OT evaluation Covid PCR is pending Check some additional inflammatory markers and baseline Covid labs Monitor temperature curve Have not administered any antibiotics currently is no clear foci of infection and hemodynamically stable Check influenza screen Check TSH Neurochecks Continue home gabapentin Lovenox for DVT prophylaxis Protonix for GI prophylaxis Supportive care otherwise Plans were discussed with patient and she was given an opportunity to ask q uestions Anticipated Disposition: Home Code Status: Full code Attestations Medical Necessity Statement*: Currently anticipate a stay less than two midnights and young looking 84-year-old who presented with significant fever and a fall at home after a few days of not feeling well and having some weakness. Fever was persistent as was the need for assistance in the emergency room prompting request for observation admission. She did have some laboratory findings that are suggestive of possibility of Covid infection. Currently not requiring oxygen or with significant pulmonary abnormalities on chest x-ray however with age and comorbid conditions as described at high risk of rapid clinical decline and warrants at least overnight observation presently. Coding Level of Care Code Acute Japanese Interpreter for Chg Fwd Diagnoses Fall at home W19.XXXA; Y92.009 Encounter type: initial encounter Weakness R53.1 Fever R50.9 Fever type: unspecified Atrial fibrillation I48.0 Atrial fibrillation type: paroxysmal Hypertension I10 Hypertension type: essential hypertension Hypothyroidism E03.9 Hypothyroidism type: unspecified Anxiety F41.9 Neuropathy G62.9
[2020-11-22] MEDS: pantoprazole DR 40 mg Tablet PO (08:19)
--- NOTE | 2020-11-22 08:39 | PC.PHAR ---
pt states she takes care of her own medications-pt brought in medication bottles-some bottles the pt had written on with direction changes-notes are made in the pharmacy comments on the rxs
--- NOTE | 2020-11-22 09:11 | US_ITS ---
WS: [id number] RIGHT UPPER QUADRANT ULTRASOUND HISTORY: elevated LFTs and alkaline phosphatase. COMPARISON: None available. Liver: 14.6 cm in length. Normal size liver. No bile duct dilatation or mass. Gallbladder: Normally distended with stones. No gallbladder wall thickening. CBD: 0.5 cm Pancreas: Normal size and echogenicity. Right kidney: 10.5 cm in length. Normal size and echogenicity. No hydronephrosis or mass. Aorta and IVC: Unremarkable abdominal aorta and IVC. No ascites. US/US abdomen limited [id number] IMPRESSION: Cholelithiasis without acute cholecystitis or bile duct dilatation.
--- NOTE | 2020-11-22 09:13 | PC.NURSE ---
patient refused morning medication colace.
[2020-11-22 09:20] LABS: Basophils % 0.2 %; Eosinophils # 0.2 10^3/uL (0.0-0.8); Eosinophils % 2.8 %; Hematocrit 37.6 % (37.0-47.0); Hemoglobin 12.5 g/dL (11.5-15.3); Lymphocytes # 0.7 10^3/uL (0.8-4.8); Lymphocytes % 11.6 %; Mean Corpuscular HGB Conc 33.2 g/dL (30.0-36.0); Mean Corpuscular Hemoglobin 32.6 pg (28.0-34.0); Mean Corpuscular Volume 97.9 fl (81-99); Mean Platelet Volume 10.7 fL (7.4-10.4); Monocytes # 0.2 10^3/uL (0.2-0.9); Neutrophils # 4.89 10^3/uL (1.8-7.7); Neutrophils % 80.9 %; Nucleated Red Blood Cells % 0 %; Platelet Count 189 10^3/cmm (130-400); Red Blood Count 3.84 10^6/uL (4.1-5.3); Red Cell Distribution Width 12.2 % (12.1-15.1)
[2020-11-22] MEDS: amlodipine 5 mg Tablet PO (09:23)
[2020-11-22] MEDS: losartan 50 mg Tablet PO (09:24)
[2020-11-22 09:34] LABS: INR 1.03 (0.8-1.2)
[2020-11-22 09:35] LABS: Fibrinogen 512 mg/dL (174-498); Partial Thromboplastin Time 33.9 SECONDS (23.9-36.7)
[2020-11-22 09:38] LABS: D Dimer 0.98 ug/mIFEU (0-0.59)
[2020-11-22 09:39] LABS: Influenza A by IFA Negative (Negative); Influenza B by IFA Negative (Negative)
[2020-11-22 09:47] LABS: Alanine Aminotransferase 196 U/L (0-33); Albumin Level 3.6 g/dL (3.5-5.2); Alkaline Phosphatase 199 IU/L (35-105); Anion Gap 15.9 (5-19); Aspartate Amino Transferase 143 U/L (0-32); Blood Urea Nitrogen 9 mg/dL (8-23); C Reactive Protein 32.4 mg/L (0.0-4.9); Calcium 8.3 mg/dL (8.5-10.5); Carbon Dioxide 25 mmol/L (22-29); Chloride 96 mmol/L (98-107); Creatine Phosphokinase 101 U/L (26-192); Ferritin 332 ng/mL (15-150); Glucose 105 mg/dL (65-115); Lactate Dehydrogenase 244 U/L (135-214); Osmolality Calculated 275 mOsm/kg (285-295); Potassium 3.9 mmol/L (3.5-5.1); Sodium 133 mmol/L (136-145); Total Bilirubin 0.5 mg/dL (0.15-1.2); Total Protein 6.6 g/dL (6.6-8.7)
[2020-11-22 10:05] LABS: Procalcitonin 1.52 ng/mL (0-0.5); Thyroid Stimulating Hormone 0.95 uIU/mL (0.27-4.20)
[2020-11-22 10:45] LABS: Troponin 5 6HR 10.52 ng/L (0-10); Troponin 5 6HR Delta 0.52 ng/L (0-12)
[2020-11-22 11:06] LABS: Erythrocyte Sedimentation Rate 31 mm/hr (0-15)
[2020-11-22] MEDS: hydroCHLOROthiazide 25 mg Tablet 12.5 MG PO (11:56)
[2020-11-22] MEDS: enoxaparin 40 mg/0.4 mL Syringe SUBCUT (11:56)
--- NOTE | 2020-11-22 14:45 | PC.OT ---
Patient still in ER when therapist available. Will attempt later when patient is admitted into a room.
--- NOTE | 2020-11-22 16:10 | P.PN_ITS ---
Subjective Subjective: Interval history: Patient was seen this morning, she tells me that she is here in the emergency room as she felt weak all over, she does not know exactly why but she just felt weak, she also tells me that last night when she got up, she felt lightheaded and dizzy and passed out, the next thing she remembers she was on the floor, she does not think she hit her head, but thinks that she only passed out for a few seconds, denies any chest pain, no palpitations, no recent onset weakness, she did have a history of stroke in which TPA was given, she does also complain of some right upper quadrant abdominal pain, she tells me that recently she was in the ER at [facility], she was told it was just gas Vitals/I&O/Wt Last Vital Signs Temp 98.7 F 11/22/20 15:51 Pulse 77 11/22/20 15:51 Resp 16 11/22/20 15:51 BP 134/61 11/22/20 15:51 Pulse Ox 96 11/22/20 15:51 11/22/20 11/22/20 11/22/20 06:59 14:59 22:59 Intake Total 1000 / 1000 Output Total 1150 / 1150 Balance 1000 / 1000 -1150 / -1150 Weight last 48 hrs Weight 79.379 kg Weight 79.379 kg Physical Exam 2 Const: COMMON NORMALS: no acute distress and patient oriented x3 Resp: COMMON NORMALS: normal respiratory effort, No retractions, No use of accessory muscles and clear to auscultation bilaterally AUSCULTATION: clear to auscultation bilaterally Cardio: COMMON NORMALS: regular rate, regular rhythm, S1 normal heart sound present and S2 normal heart sound present RATE: regular rate RHYTHM: regular rhythm HEART SOUNDS: S1 normal heart sound present and S2 normal heart sound present GI: COMMON NORMALS: Normal to inspection, nondistended, normoactive bowel sounds present, Soft to palpation and No hepatosplenomegaly present PALPATION: Yes Soft to palpation, Yes Tenderness to palpation present (GI) Details: RUQ and Yes No hepatosplenomegaly present Extremity: COMMON NORMALS: no pedal edema Neuro: COMMON NORMALS: patient oriented x3 Psych: COMMON NORMALS: mental status grossly normal Data : 11/22/20 08:42 11/22/20 08:42 Micro: Microbiology 11/22/20 09:06 MRSA Culture - Final Nose 11/21/20 23:59 Blood Culture - Preliminary Blood SPECIMEN COLLECTED 11/21/20 22:51 Blood Culture - Preliminary Blood SPECIMEN COLLECTED A&P Assessment and plan (1) RUQ abdominal pain: -Patient has right upper quadrant tenderness, T-max 101.6, alert oriented x3 -Elevated LFTs, elevated alk phos, bilirubin within normal limits -Right upper quadrant ultrasound does show cholelithiasis -We will do a CT scan of the abdomen and pelvis -Start on Zosyn -Follow blood cultures Status: Acute (2) Syncope: -Has a history of recurrent chronic syncope -Has a history of sick sinus syndrome -Had an event monitor, with no pauses -There was some consideration for possible pacemaker placement -Her dose of metoprolol has been cut down to 12.5 p.o. daily -However patient continues to have syncopal episodes with falls, generalized weakness -Patient tells me that she is not taking aspirin 81 mg -Patient tells me that she is not taking Eliquis, as she could not afford it -Patient discussed this with her physician in [place], so was put on Plavix, she has been taking Plavix -Head CT was negative for any intracranial hemorrhage, no acute stroke -TSH within normal limits -Rapid Covid negative Plan: -Follow Covid PCR -Continue telemetry monitoring -Continue aspirin -Hold metoprolol -Switch to therapeutic Lovenox -We will repeat cardiac echo -Troponin series -We will consult cardiology -Full code -Lovenox for DVT prophylaxis Status: Acute (3) Fall at home: Due to weakness, does report fall associate with syncope Work-up as above Fall precautions Status: Acute Qualifiers: Encounter type: initial encounter Qualified Code(s): W19.XXXA - Unspecified fall, initial encounter; Y92.009 - Unspecified place in unspecified non-institutional (private) residence as the place of occurrence of the external cause (4) Weakness: -Progressing over the last few days, nonfocal, more in general - Status: Acute (5) Fever: Started today, up to a T-max of 102.9 -No evidence of UTI, no evidence of pneumonia, rapid Covid negative, Covid PCR pending - does have right upper quadrant pain, elevated LFTs Status: Acute Qualifiers: Fever type: unspecified Qualified Code(s): R50.9 - Fever, unspecified (6) Atrial fibrillation: With a history of tachybradycardia syndrome and chronic dizziness, syncope episodes -Hold metoprolol -Not taking Eliquis due to affordability -Switch to therapeutic Lovenox for now Status: Chronic Qualifiers: Atrial fibrillation type: paroxysmal Qualified Code(s): I48.0 - Paroxysmal atrial fibrillation (7) Hypertension: Status: Chronic Qualifiers: Hypertension type: essential hypertension Qualified Code(s): I10 - Essential (primary) hypertension (8) Hypothyroidism: TSH within normal limits Status: Chronic Qualifiers: Hypothyroidism type: unspecified Qualified Code(s): E03.9 - Hypothyroidism, unspecified (9) Anxiety: Status: Chronic (10) Neuropathy: Status: Chronic (11) History of CVA (cerebrovascular accident): -Status post TPA, 05/2020 -Bilateral ICA stenosis less than 50% -Currently on Plavix, statin -With history of atrial fibrillation, noncompliant with Eliquis, but taking Plavix -Patient's syncope, and fall, and global symptoms unlikely to be associate with recurrent CVA -Currently no focal neurologic deficits, alert oriented x3, follows all commands, no focal neurologic deficits, no slurring her speech, no facial droop -Continue aspirin, statin, therapeutic Lovenox -NIH stroke scale, neurochecks Status: Acute Additional A&P Information Telemetry monitoring Hold home metoprolol Continue home losartan, hydrochlorothiazide, amlodipine Continue as needed meclizine Monitor blood pressures for significant variation PT/OT evaluation Covid PCR is pending Monitor temperature curve Neurochecks Continue home gabapentin Lovenox for DVT prophylaxis Protonix for GI prophylaxis Supportive care otherwise Plans were discussed with patient and she was given an opportunity to ask questions Anticipated Disposition: Home Code Status: Full code Attestations Medical Necessity Statement*: Patient requires hospitalization for recurrent syncope, right upper quadrant pain, with cholelithiasis Coding Level of Care Code Acute Restoration Officer for Chg Fwd Diagnoses RUQ abdominal pain R10.11 Syncope R55 Fall at home W19.XXXA; Y92.009 Encounter type: initial encounter Weakness R53.1 Fever R50.9 Fever type: unspecified Atrial fibrillation I48.0 Atrial fibrillation type: paroxysmal Hypertension I10 Hypertension type: essential hypertension Hypothyroidism E03.9 Hypothyroidism type: unspecified Anxiety F41.9 Neuropathy G62.9 History of CVA (cerebrovascular accident) Z86.73
--- NOTE | 2020-11-22 16:11 | CTR_ITS ---
PROCEDURE INFORMATION: Exam: CT Abdomen And Pelvis Without Contrast Exam date and time: 11/22/2020 4:11 PM Age: 84 years old Clinical indication: Abdominal pain; Localized; Right upper quadrant (ruq); Prior surgery; Surgery date: 6+ months; Surgery type: Mast w recon and hyst; Patient HX: C/O ruq abd pain w cholelithiasis on u/s; Additional info: Ruq pain, cholethisasis, eleavted lft TECHNIQUE: Imaging protocol: Computed tomography of the abdomen and pelvis without contrast. Radiation optimization: All CT scans at this facility use at least one of these dose optimization techniques: automated exposure control; mA and/or kV adjustment per patient size (includes targeted exams where dose is matched to clinical indication); or iterative reconstruction. COMPARISON: US abdomen limited [id number] 11/22/2020 10:04 AM RADIATION DOSE METRICS: Total DLP (mGy-cm): 1554.3 FINDINGS: Limitations: The absence of intravenous contrast lessens the sensitivity of this study for solid organ abnormalities. Mediastinal space: There is a small hiatal hernia. Liver: There is no focal abnormality within the liver. Gallbladder and bile ducts: Normal. No calcified stones. No ductal dilation. Pancreas: Pancreas is fatty but otherwise unremarkable. Spleen: The spleen demonstrates punctate calcifications, consistent with remote granulomatous organism exposure. Adrenal glands: The adrenal glands are normal. Kidneys and ureters: There is focal scarring in the mid right kidney. There are simple peripelvic cysts bilaterally. There is no evidence of hydronephrosis. There is no evidence of renal or ureteral calcifications. Stomach and bowel: There is no evidence of colitis/diverticulitis. There is no evidence of intestinal obstruction. Appendix: A normal appendix is identified. Intraperitoneal space: There is no evidence of free intraperitoneal fluid. Vasculature: The aorta demonstrates moderate atherosclerotic calcification. There is no evidence of an abdominal aortic aneurysm. Lymph nodes: There is no evidence of lymphadenopathy. Urinary bladder: Unremarkable as visualized. Reproductive: There has been a hysterectomy. Bones/joints: The lumbar spine demonstrates moderate degenerative changes at multiple levels. Soft tissues: There are postsurgical changes in the anterior abdominal wall. CT/CT abdomen pelvis wo con [id number] IMPRESSION: No acute findings. Radiation Dose CTDIVOL = (mGy): DLP = 1554.3 (mGy-cm)
[2020-11-22 16:40] LABS: Coronavirus Test Green County Not Detected
[2020-11-22] MEDS: docusate sodium 100 mg Capsule PO (17:38)
[2020-11-22] MEDS: piperacillin-tazobactam 3.375 GM in sodium chloride 0.9% (plus) 50 ML IV (17:38)
--- NOTE | 2020-11-22 18:09 | PM.CONSULT ---
Providers/Reason For Consult Consulting Physician/Specialty*: Cardiology Reason for Consult*: Syncope/bradycardia Attending Physician: Fidencio Anderson MD Primary Care Provider: Zach Camp DO History of Present Illness History of Present Illness Anh Kat is a 84 year old female past medical history significant for recurrent syncope for which she was monitored with heart monitor in the near past, hypertension hyperlipidemia cerebral vascular accident was admitted with unspecified infection and syncope yesterday. According to the patient this time she passed out at once while moving out of the bed it is different as compared to the prior episodes when she used to pass out but she always knew when it was coming. There was only one occasion when while laying in the bed she felt like she can pass out and she passed out. She said that she was told that she may will at some point will be needing a pacemaker. She has history of atrial fibrillation currently appears to be in sinus rhythm she is on beta-abril for now. She is not bradycardic. Patient described couple of time passing out while trying to pass stool, at one occasion she remembers while standing for long period of time she felt like she is going to pass and then she did for few seconds. She admits to running low of heart rate at occasion. She denies chest pain orthopnea and PND Review of Systems Const: Reports: fever(s), chills, body aches, fatigue and malaise Eyes: Denies: change in vision, blurry vision, photophobia or eye discomfort ENMT: Denies: throat pain, enlarged tonsils, dental pain or nasal congestion Card: Reports: other (Has chronic dizziness); Denies: chest pain, palpitations or edema Resp: Denies: dyspnea, productive cough, non-productive cough or pain on inspiration GI: Denies: abdominal pain, nausea, vomiting, diarrhea or constipation : Denies: difficulty voiding, dysuria or hematuria Musc: Reports: muscle weakness; Denies: neck pain, back pain, joint swelling, joint redness or joint warmth Skin/Breast: Denies: rash or sores Neuro: Reports: weakness in extremities; Denies: headache(s) Psych: Denies: anxiety or depression Mo/Lymph: Denies: easy bruising or easy bleeding All/Imm: Denies: urticaria or acute wheezing Meds/Allergies Home Medications and Allergies Home Medications Medication Instructions Recorded Confirmed Last Taken Type levothyroxine 88 mcg tablet 88 mcg PO DAILY@0608/30/19 11/22/20 07/26/20 History meclizine 12.5 mg tablet 12.5 mg PO BID PRN 08/31/19 11/22/20 Unknown History gabapentin 100 mg PO BID@05/19/20 11/22/20 07/26/20 History fluticasone propionate [Flonase 2 spray INTRANASAL BEDTIME 05/21/20 11/22/20 07/26/20 History Allergy Relief] hydrochlorothiazide 12.5 mg tablet 12.5 mg PO DAILY@0800 tab 06/28/20 11/22/20 07/26/20 History atorvastatin [Lipitor] 40 mg PO DAILY@199907/26/20 11/22/20 07/25/20 History clopidogrel 75 mg PO DAILY@0800 07/26/20 11/22/20 07/26/20 History metoprolol tartrate 25 mg tablet 12.5 mg PO DAILY tab 09/26/20 11/22/20 Unknown History amlodipine 5 mg tablet 5 mg PO DAILY #90 tab 10/21/20 11/22/20 Unknown Rx acetaminophen [Tylenol Extra 500 mg PO BEDTIME 11/22/20 11/22/20 Unknown History Strength] aspirin [Aspir-81] 81 mg PO ONCE 11/22/20 11/22/20 11/21/20 History glycerin [Artificial Tears 1 drp OPHTHALMIC (EYE) PRN 11/22/20 11/22/20 Unknown History (glycerin)] ketotifen fumarate [Allergy Eye 1 drp OPHTHALMIC (EYE) BID PRN 11/22/20 11/22/20 Unknown History (ketotifen)] latanoprost 1 drp OPHTHALMIC (EYE) QPM 11/22/20 11/22/20 Unknown History losartan 50 mg PO DAILY 11/22/20 11/22/20 Unknown History magnesium oxide 500 mg PO DAILY 11/22/20 11/22/20 Unknown History Allergies Allergy/AdvReac Type Severity Reaction Status Date / Time ranitidine [From Zantac] Allergy rash Verified 11/22/20 08:39 Sulfa (Sulfonamide Allergy rash Verified 11/22/20 08:39 Antibiotics) meperidine [From Demerol] AdvReac ADR-Vomitin Verified 11/22/20 08:39 g IV contrast Allergy Severe ALGY-Anaphy Uncoded 09/26/20 10:46 laxis Current Medications Current Medications Generic Name Dose Route Start Last Admin Trade Name Ashleigh PRKatia Reason Stop Dose Admin Amlodipine Besylate 5 mg 11/22/20 09:00 11/22/20 09:23 Amlodipine 5 Mg Tablet PO 5 mg DAILY SUHA Administration Docusate Sodium 100 mg 11/22/20 09:00 11/22/20 17:38 Docusate Sodium 100 Mg Capsule PO 100 mg BID SUHA Administration Hydrochlorothiazide 12.5 mg 11/22/20 10:00 11/22/20 11:56 Hydrochlorothiazide 25 Mg Tablet PO 12.5 mg DAILY SUHA Administration Piperacillin Sod/Tazobactam 50 mls @ 12.5 mls/hr 11/22/20 17:30 11/22/20 17:38 Sod 3.375 gm/ Sodium Chloride IV 12.5 mls/hr Q8H SUHA Administration Protocol Losartan Potassium 50 mg 11/22/20 09:00 11/22/20 09:24 Losartan 50 Mg Tablet PO 50 mg DAILY SUHA Administration Pantoprazole Sodium 40 mg 11/22/20 09:00 11/22/20 08:[address] 40 Mg Tablet PO 40 mg DAILY SUHA Administration Additional Medication Information I personally reviewed home medication list and medications received day of admission thus far. 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 Surgical History (Updated 11/22/20 @ 08:34 by Tonya Cortez MD) History of bilateral mastectomy History of breast reconstruction History of hysterectomy History of oophorectomy Family History (Updated 11/22/20 @ 08:37 by Tonya Cortez MD) Mother CAD (coronary artery disease) Stented coronary artery Dementia Advanced age Lived until 89 Denies family history of Diabetes Social History (Updated 11/22/20 @ 08:37 by Tonya Cortez MD) Smoking and tobacco status: never smoked Alcohol intake: never Substance/Drug Use: never Dietary Habits: Current diet type/program: regular Caffeine: Yes Exercise: Physical activity functional status: independent ambulation and normal ROM and activity Safety: Seatbelt use: always Home Safety: Working smoke detector in home: Yes Personal Safety: Do you feel safe at home: Yes Victim of physical abuse: No Victim of emotional abuse: No Victim of sexual abuse: No Would you like help information on resources?: No Vitals/I&O/Wt Last Vital Signs Temp 98.7 F 11/22/20 15:51 Pulse 77 11/22/20 15:51 Resp 16 11/22/20 15:51 BP 134/61 11/22/20 15:51 Pulse Ox 96 11/22/20 15:51 11/22/20 11/22/20 11/22/20 06:59 14:59 22:59 Intake Total 1000 / 1000 Output Total 1150 / 1150 Balance 1000 / 1000 -1150 / -1150 Weight last 48 hrs Weight 175 lb Weight 175 lb Physical Exam Narrative: EXAM NARRATIVE: GENERAL: Patient is alert, awake and oriented x3. NECK: No jugular vein distension. HEENT: No cyanosis. No icterus. No pallor. HEART: Regular S1 and S2. 2/6 sys murmur, rub or gallop. LUNGS: Clear to auscultate bilaterally. ABDOMEN: Soft, nontender and nondistended. Positive bowel sounds. No guarding, rebound or tenderness. CENTRAL NERVOUS SYSTEM: Grossly nonfocal. EXTREMITIES: Lower extremities without edema bilaterally. Pulses palpable in the lower extremities, both dorsalis pedis and posterior tibial. Data Micro: Micro: Microbiology 11/22/20 09:06 MRSA Culture - Fin al Nose 11/21/20 23:59 Blood Culture - Pr eliminary Blood SPECIMEN [facility] 11/21/20 22:51 Blood Culture - Pr eliminary Blood SPECIMEN [facility] A&P Assessment and plan (1) Syncope: Most likely vasovagal, last night patient passed out possible due to dehydration as she was not much aware of her surroundings but cannot rule out intermittent heart block. We will monitor her overnight. If we do not find any intermittent heart block or signs of tachybradycardia syndrome recommend putting loop recorder as an outpatient. Status: Acute Qualifiers: Syncope type: unspecified Qualified Code(s): R55 - Syncope and collapse (2) Atrial fibrillation: Appear to be in sinus rhythm continue current on the telemetry. Status: Chronic Qualifiers: Atrial fibrillation type: paroxysmal Qualified Code(s): I48.0 - Paroxysmal atrial fibrillation (3) Murmur: There appeared to be 2/6 sys murmur would may not be the etiology for syncope. Echocardiogram was performed and of May no need of further repeating any more exam. 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
--- NOTE | 2020-11-22 18:18 | ECG_ITS ---
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
[2020-11-22 18:32] LABS: Troponin(5th) Baseline 12 ng/L (0-10)
[2020-11-22 20:32] LABS: Troponin 5 2HR 11.34 ng/L (0-10)
[2020-11-22 20:35] LABS: Troponin 5 2HR Delta -0.66 ABS# (0-10)
[2020-11-22] MEDS: fluticasone nasal spray 16gm Btl 2 SPRAY INTRANASAL (22:32)
[2020-11-22] MEDS: atorvastatin 40 mg Tablet PO (22:35)
[2020-11-22] MEDS: gabapentin 100 mg Capsule PO (22:35)
[2020-11-22] MEDS: latanoprost 0.005% Op Soln 2.5 mL Btl 1 DROP OPHTHALMIC (22:36)
[2020-11-22] MEDS: enoxaparin 80 mg/0.8 mL Syringe SUBCUT (22:47)
[2020-11-23] VITALS (11 sets, daily range): BP systolic 136–180; BP diastolic 68–93; PULSE 54–65; RESP 14–18; TEMP 36.6–37.6; O2SAT 93–97
[2020-11-23 00:39] LABS: Troponin 5 6HR 9.49 ng/L (0-10)
[2020-11-23 00:46] LABS: Troponin 5 6HR Delta -2.51 ng/L (0-12)
[2020-11-23] MEDS: piperacillin-tazobactam 3.375 GM in sodium chloride 0.9% (plus) 50 ML IV ×3 (01:42→17:36)
[2020-11-23] MEDS: levothyroxine 88 mcg Tablet PO (05:51)
[2020-11-23 07:16] LABS: Basophils % 0.2 %; Eosinophils # 0.4 10^3/uL (0.0-0.8); Eosinophils % 9.3 %; Hematocrit 33.9 % (37.0-47.0); Hemoglobin 11.2 g/dL (11.5-15.3); Lymphocytes # 1.4 10^3/uL (0.8-4.8); Lymphocytes % 30.9 %; Mean Corpuscular Hemoglobin 32.5 pg (28.0-34.0); Mean Corpuscular Volume 98.3 fl (81-99); Mean Platelet Volume 10.3 fL (7.4-10.4); Monocytes # 0.4 10^3/uL (0.2-0.9); Monocytes % 8.4 %; Neutrophils # 2.24 10^3/uL (1.8-7.7); Nucleated Red Blood Cells % 0 %; Platelet Count 180 10^3/cmm (130-400); Red Blood Count 3.45 10^6/uL (4.1-5.3); Red Cell Distribution Width 12.3 % (12.1-15.1); White Blood Count 4.4 10^3/uL (4.0-10.0)
[2020-11-23 07:42] LABS: Alanine Aminotransferase 129 U/L (0-33); Albumin Level 3.3 g/dL (3.5-5.2); Alkaline Phosphatase 182 IU/L (35-105); Aspartate Amino Transferase 68 U/L (0-32); Blood Urea Nitrogen 7 mg/dL (8-23); C Reactive Protein 35.4 mg/L (0.0-4.9); Calcium 8.3 mg/dL (8.5-10.5); Carbon Dioxide 24 mmol/L (22-29); Chloride 95 mmol/L (98-107); Globulin 2.1 g/dL (1.3-4.6); Glucose 92 mg/dL (65-115); Magnesium 1.8 mg/dL (1.7-2.3); Osmolality Calculated 268 mOsm/kg (285-295); Phosphorus 2.8 mg/dL (2.5-4.5); Sodium 130 mmol/L (136-145); Total Bilirubin 0.5 mg/dL (0.15-1.2); Total Protein 5.4 g/dL (6.6-8.7)
[2020-11-23 07:46] LABS: Lactate (Lactic Acid level) 0.8 mmol/L (0.5-2.2)
[2020-11-23 07:51] LABS: NT Pro B Type Natriuretic Pept 436 pg/mL (0-450); Procalcitonin 0.98 ng/mL (0-0.5)
[2020-11-23 08:02] LABS: Creatine Phosphokinase 71 U/L (26-192)
[2020-11-23] MEDS: docusate sodium 100 mg Capsule PO ×2 (09:46→17:36)
[2020-11-23] MEDS: losartan 50 mg Tablet PO (09:46)
[2020-11-23] MEDS: amlodipine 5 mg Tablet PO (09:47)
[2020-11-23] MEDS: pantoprazole DR 40 mg Tablet PO (09:47)
[2020-11-23] MEDS: hydroCHLOROthiazide 25 mg Tablet 12.5 MG PO (09:47)
[2020-11-23] MEDS: gabapentin 100 mg Capsule PO ×2 (09:47→21:04)
[2020-11-23] MEDS: enoxaparin 80 mg/0.8 mL Syringe SUBCUT (11:35)
--- NOTE | 2020-11-23 13:24 | PM.PN ---
Subjective Subjective: Interval history: Patient was seen this morning, she tells me that she felt a little bit lightheaded when working with physical therapy, she did not enjoy the cardiac diet this morning, but overall is doing better, her abdominal pain is minimal today, T-max 100.3 overnight, has no other complaints Vitals/I&O/Wt Last Vital Signs Temp 97.8 F 11/23/20 12:00 Pulse 64 11/23/20 12:00 Resp 16 11/23/20 12:00 BP 150/83 11/23/20 12:00 Pulse Ox 97 11/23/20 12:00 11/22/20 11/23/20 11/23/20 22:59 06:59 14:59 Intake Total 290 / 290 150 / 440 1600 / 1600 Output Total 400 / 1550 Balance 290 / -860 -250 / -1110 1600 / 1600 Weight last 48 hrs Weight 79.379 kg Weight 79.379 kg Physical Exam Const: COMMON NORMALS: no acute distress and patient oriented x3 Resp: COMMON NORMALS: normal respiratory effort, No retractions, No use of accessory muscles and clear to auscultation bilaterally AUSCULTATION: clear to auscultation bilaterally Cardio: COMMON NORMALS: regular rate, regular rhythm, S1 normal heart sound present and S2 normal heart sound present RATE: regular rate RHYTHM: regular rhythm HEART SOUNDS: S1 normal heart sound present and S2 normal heart sound present GI: COMMON NORMALS: Normal to inspection, nondistended, normoactive bowel sounds present, Soft to palpation, non-tender and No hepatosplenomegaly present PALPATION: Yes Soft to palpation and Yes No hepatosplenomegaly present Extremity: COMMON NORMALS: capillary refill normal, no clubbing, cyanosis or edema, no calf tenderness and no pedal edema Neuro: COMMON NORMALS: patient oriented x3 Psych: COMMON NORMALS: mental status grossly normal Data : 11/23/20 07:03 11/23/20 07:03 Micro: Microbiology 11/21/20 23:59 Blood Culture - Preliminary Blood NEGATIVE TO DATE 11/21/20 22:51 Blood Culture - Preliminary Blood NEGATIVE TO DATE 11/22/20 09:06 MRSA Culture - Final Nose A&P Assessment and plan (1) RUQ abdominal pain: -Patient has right upper quadrant tenderness, T-max 100.3, alert oriented x3 -Elevated LFTs, elevated alk phos, bilirubin within normal limits -Right upper quadrant ultrasound does show cholelithiasis -CT scan abdomen pelvis shows no focal abnormality within the liver, no ductal dilatation, gallbladder normal, pancreas normal -Given persistent elevated LFTs, continued low-grade fevers we will do a HIDA scan -Continue Zosyn -Follow blood cultures Status: Acute (2) Syncope: -Has a history of recurrent chronic syncope -Has a history of sick sinus syndrome -Had an event monitor, with no pauses -There was some consideration for possible pacemaker placement -Her dose of metoprolol has been cut down to 12.5 p.o. daily -However patient continues to have syncopal episodes with falls, generalized weakness -Patient tells me that she is not taking aspirin 81 mg -Patient tells me that she is not taking Eliquis, as she could not afford it -Patient discussed this with her physician in [place], so was put on Plavix, she has been taking Plavix -Head CT was negative for any intracranial hemorrhage, no acute stroke -TSH within normal limits -Rapid Covid negative -Does report lightheadedness this morning when working with physical therapy Plan: -Continue telemetry monitoring -Continue aspirin -Hold metoprolol -Switch to therapeutic Lovenox for now, Eliquis on discharge -We will repeat cardiac echo -Troponin series baseline troponin XII, 6-hour 9.49 -We will consult cardiology -Full code -Lovenox for DVT prophylaxis Status: Acute Qualifiers: Syncope type: unspecified Qualified Code(s): R55 - Syncope and collapse (3) Fall at home: Due to weakness, does report fall associate with syncope Work-up as above Fall precautions Status: Acute Qualifiers: Encounter type: initial encounter Qualified Code(s): W19.XXXA - Unspecified fall, initial encounter; Y92.009 - Unspecified place in unspecified non-institutional (private) residence as the place of occurrence of the external cause (4) Weakness: -Progressing over the last few days, nonfocal, more in general - Status: Acute (5) Fever: T-max of 100.3 -No evidence of UTI, no evidence of pneumonia, rapid Covid negative, Covid PCR negative - does have right upper quadrant pain, elevated LFTs Status: Acute Qualifiers: Fever type: unspecified Qualified Code(s): R50.9 - Fever, unspecified (6) Atrial fibrillation: With a history of tachybradycardia syndrome and chronic dizziness, syncope episodes -Hold metoprolol -Not taking Eliquis due to affordability -Switch to therapeutic Lovenox for now Status: Chronic Qualifiers: Atrial fibrillation type: paroxysmal Qualified Code(s): I48.0 - Paroxysmal atrial fibrillation (7) Hypertension: Status: Chronic Qualifiers: Hypertension type: essential hypertension Qualified Code(s): I10 - Essential (primary) hypertension (8) Hypothyroidism: TSH within normal limits Status: Chronic Qualifiers: Hypothyroidism type: unspecified Qualified Code(s): E03.9 - Hypothyroidism, unspecified (9) Anxiety: Status: Chronic (10) Neuropathy: Status: Chronic (11) History of CVA (cerebrovascular accident): -Status post TPA, 05/2020 -Bilateral ICA stenosis less than 50% -Currently on Plavix, statin -With history of atrial fibrillation, noncompliant with Eliquis, but taking Plavix -Patient's syncope, and fall, and global symptoms unlikely to be associate with recurrent CVA -Currently no focal neurologic deficits, alert oriented x3, follows all commands, no focal neurologic deficits, no slurring her speech, no facial droop -Continue aspirin, statin, therapeutic Lovenox -NIH stroke scale, neurochecks Status: Acute Additional A&P Information Telemetry monitoring Hold home metoprolol Continue home losartan, hydrochlorothiazide, amlodipine Continue as needed meclizine Monitor blood pressures for significant variation PT/OT evaluation Monitor temperature curve Neurochecks Continue home gabapentin Lovenox for DVT prophylaxis Protonix for GI prophylaxis Supportive care otherwise Plans were discussed with patient and she was given an opportunity to ask questions Anticipated Disposition: Home Code Status: Full code Attestations Medical Necessity Statement*: Patient requires hospitalization for right upper quadrant pain, elevated LFTs, requiring HIDA scan, recurrent syncope Coding Level of Care Code Acute Digital Archivist for Giorgi Fwtatianna Diagnoses RUQ abdominal pain R10.11 Syncope R55 Syncope type: unspecified Fall at home W19.XXXA; Y92.009 Encounter type: initial encounter Weakness R53.1 Fever R50.9 Fever type: unspecified Atrial fibrillation I48.0 Atrial fibrillation type: paroxysmal Hypertension I10 Hypertension type: essential hypertension Hypothyroidism E03.9 Hypothyroidism type: unspecified Anxiety F41.9 Neuropathy G62.9 History of CVA (cerebrovascular accident) Z86.73
--- NOTE | 2020-11-23 16:22 | USCV_ITS ---
Anh Kat Age: 84 Gender: F : 1935 Exam Date: 11/23/2020 07:30 Ordering Phys: Fidencio Anderson MD Technologist: Serena Linares [place] [facility] [place]: Syncope BP: 177 / 73 HR: 57 Rhythm: Sinus Technical Quality: Fair MEASUREMENTS (Male / Female) Normal Values 2D ECHO LV Diastolic Diameter PLAX 4.1 cm 4.2 - 5.9 / 3.9 - 5.3 cm LV Systolic Diameter PLAX 2.7 cm LV Chamber Size 4.0 cm IVS Diastolic Thickness 1.3 cm 0.6 - 1.0 / 0.6 - 0.9 cm IVS Systolic Thickness 1.7 cm LVPW Diastolic Thickness 0.7 cm 0.6 - 1.0 / 0.6 - 0.9 cm LVPW Systolic Thickness 1.2 cm RV Chamber Size 3.7 cm LVOT Diameter 1.7 cm LV Ejection Fraction 2D Teich 63.2 % LA Diameter 4.0 cm LA Width 3.2 cm LA Height 4.5 cm RA Width 3.5 cm RA Height 4.3 cm Aorta at Sinotubular Diameter 2.2 cm M-MODE LV Diastolic Diameter MM 4.8 cm 4.2 - 5.9 / 3.9 - 5.3 cm LV Systolic Diameter MM 2.5 cm LV Ejection Fraction MM Teich 78.7 % IVS Diastolic Thickness MM 1.0 cm 0.6 - 1.0 / 0.6 - 0.9 cm IVS Systolic Thickness MM 1.2 cm LVPW Diastolic Thickness MM 0.9 cm 0.6 - 1.0 / 0.6 - 0.9 cm LVPW Systolic Thickness MM 1.5 cm RV Diastolic Diameter MM 2.1 cm Aortic Annulus Diameter 2.9 cm LA Ao Ratio MM 1.5 MV E Point Septal Separation 0.3 cm DOPPLER AV Peak Velocity 128.0 cm/s LVOT Peak Velocity 79.0 cm/s AV Area Cont Eq vti 2.0 cm squared AV Area Cont Eq pk 1.5 cm squared MV Area PHT 3.7 cm squared Mitral E to A Ratio 1.1 MV E' Velocity 45.0 cm/s Mitral E to MV E' Ratio 11.3 Mitral E to LV E' Lateral Ratio 13.3 Mitral E to LV E' Septal Ratio 10.0 TR Peak Velocity 275.8 cm/s TR Peak Gradient 30.4 mmHg TR Mean Velocity 228.3 cm/s TR Mean Gradient 22.0 mmHg TR Velocity Time Integral 104.6 cm TV Peak E Velocity 55.0 cm/s Right Atrial Pressure 3.0 mmHg Pulmonary Artery Systolic Pressu 33.4 mmHg PV Peak Velocity 70.0 cm/s RV Acceleration Time 0.1 s RV Ejection Time 0.3 s RV AcT/ET 0.3 FINDINGS Left Ventricle Normal left ventricular cavity size. Normal left ventricular systolic function. No regional wall motion abnormalities. Left ventricular ejection fraction is estimated at 70 %. Grade II/IV diastolic dysfunction, moderately elevated filling pressures. Right Ventricle The right ventricle is normal in size and function. Right Atrium The right atrium is normal in size. Left Atrium The left atrium is normal in size. Mitral Valve Moderately thickened mitral valve. No mitral valve stenosis. Mild mitral valve regurgitation. Aortic Valve Mild aortic valve calcification. No aortic valve stenosis. Trace aortic valve regurgitation. Tricuspid Valve Structurally normal tricuspid valve without significant stenosis or regurgitation. Pulmonary artery systolic pressure is normal. Pulmonic Valve Structurally normal pulmonic valve without significant stenosis. There is no pulmonic regurgitation. Pericardium Normal pericardium without effusion. Aorta Normal ascending aorta dimension. CONCLUSIONS 1-Normal left ventricular cavity size. Normal left ventricular systolic function. No regional wall motion abnormalities. Left ventricular ejection fraction is estimated at 70 %. Grade II/IV diastolic dysfunction, moderately elevated filling pressures. 2-There is no pericardial effusion. 3-No significant valve abnormalities. 4-Pulmonary artery systolic pressure is within normal limits. 5-Right atrial pressure is around 5 mm of mercury. 6-No significant change since the prior echocardiogram study of 05/22/2020. Kylee Stuart MD (Electronically Signed) Final Date: 23 November 2020 17:11 S
--- NOTE | 2020-11-23 18:34 | P.PN_ITS ---
Subjective Subjective: Interval history: In the night no intermittent heart block noted however patient dips down to 40s and generally she remains in sinus bradycardic to sinus rhythm heart rate ranged from 50s to 60s. 6 Medications: Medication Review Details: I personally reviewed home medication list and medications received day of admission thus far. Vitals/I&O/Wt Last Vital Signs Temp 98.3 F 11/23/20 15:52 Pulse 65 11/23/20 15:52 Resp 16 11/23/20 15:52 BP 164/93 11/23/20 15:52 Pulse Ox 96 11/23/20 15:52 11/23/20 11/23/20 11/23/20 06:59 14:59 22:59 Intake Total 150 / 440 1650 / 1650 240 / 1890 Output Total 400 / 1550 Balance -250 / -1110 1650 / 1650 240 / 1890 Weight last 48 hrs Weight 175 lb Weight 175 lb Physical Exam Narrative: EXAM NARRATIVE: GENERAL: Patient is alert, awake and oriented x3. NECK: No jugular vein distension. HEENT: No cyanosis. No icterus. No pallor. HEART: Regular S1 and S2. 2/6 sys murmur, rub or gallop. LUNGS: Clear to auscultate bilaterally. ABDOMEN: Soft, nontender and nondistended. Positive bowel sounds. No guarding, rebound or tenderness. CENTRAL NERVOUS SYSTEM: Grossly nonfocal. EXTREMITIES: Lower extremities without edema bilaterally. Pulses palpable in the lower extremities, both dorsalis pedis and posterior tibial. Data : 11/23/20 07:03 11/23/20 07:03 Micro: Microbiology 11/21/20 23:59 Blood Culture - Preliminary Blood NEGATIVE TO DATE 11/21/20 22:51 Blood Culture - Preliminary Blood NEGATIVE TO DATE A&P Assessment and plan (1) Syncope: Most likely vasovagal, at this point keep yourself hydrated, patient educated regarding how to avoid it when she notes coming she should sit down or lay down. She should not resist by standing Status: Acute Qualifiers: Syncope type: unspecified Qualified Code(s): R55 - Syncope and collapse (2) Atrial fibrillation: With him rather sinus bradycardic most of the time. At this point we will further reduce metoprolol to cut into one fourth 6.25 mg twice a day. Currently she is not on metoprolol we will continue to hold it for now, if she continues to be bradycardiac then may will be needing pacemaker at some point due to tachybradycardia syndrome. Status: Chronic Qualifiers: Atrial fibrillation type: paroxysmal Qualified Code(s): I48.0 - Paroxysmal atrial fibrillation (3) Murmur: There appeared to be 2/6 sys murmur would may not be the etiology for syn cope. Echocardiogram was performed and month of May no need of further repeating any more exam. Status: Acute Attestations Medical Necessity Statement*: Patient require continuation hospitalization for above defined. Coding Level of Care Code Established Pt Acute Senior Clinical Consultant for g Fwd Patient Type Established History Detailed Exam Detailed Medical Decision Making Moderate Complexity Diagnoses Syncope R55 Syncope type: unspecified Atrial fibrillation I48.0 Atrial fibrillation type: paroxysmal Murmur R01.1
[2020-11-23] MEDS: atorvastatin 40 mg Tablet PO (21:04)
[2020-11-23] MEDS: latanoprost 0.005% Op Soln 2.5 mL Btl 1 DROP OPHTHALMIC (21:04)
[2020-11-23] MEDS: fluticasone nasal spray 16gm Btl 2 SPRAY INTRANASAL (21:04)
[2020-11-24] MEDS: enoxaparin 80 mg/0.8 mL Syringe SUBCUT ×2 (00:01→11:06)
[2020-11-24] MEDS: piperacillin-tazobactam 3.375 GM in sodium chloride 0.9% (plus) 50 ML IV ×2 (02:25→08:32)
[2020-11-24 03:56] VITALS: BP 134/71; PULSE 57; RESP 17; TEMP 36.8; O2SAT 96
[2020-11-24] MEDS: levothyroxine 88 mcg Tablet PO (06:29)
[2020-11-24 08:00] VITALS: BP 130/66; PULSE 60; RESP 18; TEMP 37.1; O2SAT 97
[2020-11-24] MEDS: hydroCHLOROthiazide 25 mg Tablet 12.5 MG PO (08:14)
[2020-11-24 08:15] VITALS: BP 134/71
[2020-11-24] MEDS: losartan 50 mg Tablet PO (08:15)
[2020-11-24] MEDS: amlodipine 5 mg Tablet PO (08:15)
[2020-11-24] MEDS: pantoprazole DR 40 mg Tablet PO (08:15)
[2020-11-24] MEDS: gabapentin 100 mg Capsule PO (08:15)
[2020-11-24 11:10] VITALS: BP 146/71; PULSE 58; RESP 16; TEMP 36.6; O2SAT 97
--- NOTE | 2020-11-24 11:54 | P.DS_ITS ---
Discharge Providers Date of Admission: 11/22/20 15:51 Date of Discharge: November 24, 2020 Attending Provider at Admission: Tonya Cortez MD Attending Provider at Discharge: Fidencio Anderson MD Primary Care Provider: Zach Camp DO Diagnoses at Discharge Discharge Diagnosis (1) Syncope: Status: Acute Qualifiers: Syncope type: unspecified Qualified Code(s): R55 - Syncope and collapse (2) Atrial fibrillation: Status: Chronic Qualifiers: Atrial fibrillation type: paroxysmal Qualified Code(s): I48.0 - Paroxysmal atrial fibrillation (3) Murmur: Status: Acute Reason for Visit Reason for Visit: FALL Hospital Course Hospital Course This is a 84-year-old female with a past medical history of atrial fibrillation currently not on Eliquis therapy due to affordability, history of CVA status post TPA, history of tachybradycardia syndrome, history of recurrent syncope, history of hypertension, hyperlipidemia, anxiety, neuropathy, who presents to [facility] due to syncope, fall, weakness, fevers For patient's fever, weakness, UA unremarkable for UTI, chest x-ray unremarkable for pneumonia, she did have right upper quadrant pain, elevated LFTs, elevated alk phos, right upper quadrant ultrasound showed cholelithiasis, CT scan of the abdomen pelvis did not show any focal abnormality within the liver, no ductal dilatation, gallbladder and pancreas within normal limits, she was treated with broad-spectrum antibiotic therapy, all cultures have been unremarkable, she remained afebrile, right upper quadrant pain resolved. Attempts were made to perform a HIDA scan, given the long weekend, and patient's clinical improvement, it was not urgently acquired, and this could not be performed. I have discharged the patient on instructions for a low-fat diet, Cipro and Flagyl for 11 meeting days, and a close follow-up with general surgery as outpatient. Patient was advised that she were to have recurrent right upper quadrant pain, fevers come back to emergency room. Syncope: -Has a history of recurrent chronic syncope -Has a history of sick sinus syndrome -Had an event monitor, with no pauses -There was some consideration for possible pacemaker placement -Her dose of metoprolol has been cut down to 12.5 p.o. daily -However patient continues to have syncopal episodes with falls, generalized weakness -Patient tells me that she is not taking aspirin 81 mg -Patient tells me that she is not taking Eliquis, as she could not afford it -Patient discussed this with her physician in [place], so was put on Plavix, she has been taking Plavix -Head CT was negative for any intracranial hemorrhage, no acute stroke -TSH within normal limits -Rapid Covid negative -Does report lightheadedness this morning when working with physical therapy, or when she was receiving blood draws -Telemetry monitoring during this hospitalization did show sinus bradycardia, no significant pauses -No significant troponin elevation, no significant delta troponin, no complaints of chest pain -Echocardiogram shows an EF of 70%, grade 2 out of 4 diastolic dysfunction -Cardiology was consulted, recommended to cut down dose of metoprolol to 6.25 daily -If she were to continue to feel lightheaded or dizzy to stop metoprolol -Follow-up with Dr. wells as outpatient, as she has atrial fibrillation, tachycardia-bradycardia syndrome she might benefit from a pacemaker placement at some point -During this hospitalization her syncope seems a lot like vasovagal syncope, I advised ambulate with care, especially when getting up from a seated position -As I am discharging her on Eliquis, please ambulate with care, if she were to have any falls, or bloody or black stools go to the emergency room History of atrial fibrillation, discharged on low-dose metoprolol 6.25 mg daily, with Eliquis as above Has a history of CVA, status post TPA, bilateral ICA stenosis less than 50%, discharged on her home aspirin, statin Physical Exam Const: COMMON NORMALS: no acute distress and patient oriented x3 Resp: COMMON NORMALS: normal respiratory effort, No retractions, No use of accessory muscles and clear to auscultation bilaterally AUSCULTATION: clear to auscultation bilaterally Cardio: COMMON NORMALS: regular rate, regular rhythm, S1 normal heart sound present and S2 normal heart sound present RATE: regular rate RHYTHM: regular rhythm HEART SOUNDS: S1 normal heart sound present and S2 normal heart sound present GI: COMMON NORMALS: Normal to inspection, nondistended, normoactive bowel sounds present, Soft to palpation and non-tender PALPATION: Yes Soft to palpation Extremity: COMMON NORMALS: no pedal edema Neuro: COMMON NORMALS: patient oriented x3 Psych: COMMON NORMALS: mental status grossly normal Discharge Data Data Completed and Pending: Completed Studies During Hospitalization Category Date Time Status CT abdomen pelvis wo con 25110 Rout ine Cat Scan 11/22/20 16:[address] head wo con* 7 0450 Urgent Cat Scan 11/21/20 22:19 Completed XR chest 1V lizeth ble [id number] Stat Exams 11/21/20 22:19 Completed CV. echo complete * [id number] Routine Ultrasound 11/23/20 16:22 Completed US abdomen limite d [id number] Stat Ultrasound 11/22/20 09:11 Completed Pending at discharge Category Date Time Status Bacterial Antigen Routine Lab 11/22/20 18:44 Ordered Blood Culture Sta t Lab 11/21/20 23:59 Results C Reactive Protei n AM LABS Lab 11/24/20 04:00 Ordered C Reactive Protei n AM LABS Lab 11/25/20 04:00 Ordered Complete Blood Co unt w/Auto AM LABS Lab 11/24/20 04:00 Ordered Complete Blood Co unt w/Auto AM LABS Lab 11/25/20 04:00 Ordered Comprehensive Met abolic Panel AM LA BS Lab 11/24/20 04:00 Ordered Comprehensive Met abolic Panel AM LA BS Lab 11/25/20 04:00 Ordered Magnesium AM LABS Lab 11/24/20 04:00 Ordered Magnesium AM LABS Lab 11/25/20 04:00 Ordered Phosphorus AM LAB S Lab 11/24/20 04:00 Ordered Phosphorus AM LAB S Lab 11/25/20 04:00 Ordered NM hepatobiliary w phar* [id number] Annel rowley Nuc Med 11/26/20 11:23 Ordered Vitals: Last Vital Signs Temp 97.9 F 11/24/20 11:10 Pulse 58 L 11/24/20 11:10 Resp 16 11/24/20 11:10 BP 146/71 11/24/20 11:10 Pulse Ox 97 11/24/20 11:10 Discharge Plan Discharge Patient Disposition: Home Condition: Stable Prescriptions: New pantoprazole 40 mg Tablet,Delayed Release (Dr/Ec) 40 mg PO DAILY 30 Days Qty: 30 RF: 0 Eliquis 5 mg tablet 5 mg PO BID 30 Days Qty: 60 RF: 0 ciprofloxacin HCl 500 mg tablet 500 mg PO BID 11 Days Qty: 22 RF: 0 metronidazole 500 mg tablet 500 mg PO Q8H 11 Days Qty: 33 RF: 0 Continued levothyroxine 88 mcg tablet 88 mcg PO DAILY@0600 RF: 0 meclizine 12.5 mg tablet 12.5 mg PO BID PRN (Reason: Dizziness) RF: 0 hydrochlorothiazide 12.5 mg tablet 12.5 mg PO DAILY@0800 RF: 0 amlodipine 5 mg tablet 5 mg PO DAILY Qty: 90 RF: 3 losartan 50 mg tablet 50 mg PO DAILY RF: 0 Allergy Eye (ketotifen) 0.025 % (0.035 %) Drops 1 drp OPHTHALMIC (EYE) BID PRN (Reason: Allergy Symptoms) RF: 0 Aspir-81 81 mg Tablet,Delayed Release (Dr/Ec) 81 mg PO ONCE RF: 0 Tylenol Extra Strength 500 mg Tablet 500 mg PO BEDTIME RF: 0 magnesium oxide 500 mg Tablet 500 mg PO DAILY RF: 0 Artificial Tears (glycerin) Drops 1 drp OPHTHALMIC (EYE) PRN RF: 0 latanoprost 0.005 % Drops 1 drp OPHTHALMIC (EYE) QPM RF: 0 gabapentin 100 mg capsule 100 mg PO BID@08,20 RF: 0 fluticasone propionate [Flonase Allergy Relief] 50 mcg/actuation spray,suspension 2 spray INTRANASAL BEDTIME RF: 0 atorvastatin [Lipitor] 40 mg tablet 40 mg PO DAILY@2000 RF: 0 Changed metoprolol tartrate 25 mg tablet 6.25 mg PO DAILY Qty: 0 RF: 0 Discontinued clopidogrel 75 mg tablet 75 mg PO DAILY@0800 RF: 0 Discharge Orders: Discharge Order (Routine); Ordered 11/24/20 Ordered By: Fidencio Anderson Other Ambulatory Orders: DME: [employer] (Order) Location: None Selected Ordered By: Fidencio Anderson Referrals: Chris Leon MD [Physician] - 1 week (RUQ pain, cholethiasis) Zach Camp DO [Primary Care Provider] - Shalini Wells MD [Physician] - 1 week (syncope) Discharge Diet: Cardiac Discharge Activity: Resume usual activity Patient Instructions: Opioid Safety Activity Restrictions/Additional Instructions: -Please hydrate well -Take antibiotics as prescribed -Please follow-up with general surgery in 1 week -Please ambulate with care -Please when changing positions, such as sitting up from a seated position, monitor for lightheadedness and dizziness -We have reduced her metoprolol dose to 6.25 mg daily, if you still feel lightheaded or dizzy while taking the medication, please stop and follow-up with Dr. Wells -Follow-up with Dr. Wells in 1 week -Please stop Plavix -Eliquis has been sent to the pharmacy, you received a drug card for 1 month, all further refills should be sent to [facility] I offered [address], and the drug cost should then be affordable Discharge Attestations Time Spent in Discharge Care*: less than 30 min Status at Discharge: Cognitive status at discharge: cognitively intact , Behavioral status at discharge: cooperative , Quality Metrics Clinical Quality Measures During this hospital stay, did patient experience: None Coding Level of Care Code Acute [facility] FW DC note Diagnoses Syncope R55 Syncope type: unspecified Atrial fibrillation I48.0 Atrial fibrillation type: paroxysmal Murmur R01.1
--- NOTE | 2020-11-24 12:34 | P.PN_ITS ---
Subjective Subjective: Interval history: Denies any complaint, denies dizziness, heart rate stays in 50s in sinus rhythm no pauses noted Medications: Medication Review Details: I personally reviewed home medication list and medications received day of admission thus far. Vitals/I&O/Wt Last Vital Signs Temp 97.9 F 11/24/20 11:10 Pulse 58 L 11/24/20 11:10 Resp 16 11/24/20 11:10 BP 146/71 11/24/20 11:10 Pulse Ox 97 11/24/20 11:10 11/23/20 11/24/20 11/24/20 22:59 06:59 14:59 Intake Total 290 / 1940 670 / 670 Output Total 200 / 200 Balance 290 / 1940 -200 / 1740 670 / 670 Weight last 48 hrs Weight 175 lb Physical Exam Narrative: EXAM NARRATIVE: GENERAL: Patient is alert, awake and oriented x3. NECK: No jugular vein distension. HEENT: No cyanosis. No icterus. No pallor. HEART: Regular S1 and S2. 2/6 sys murmur, rub or gallop. LUNGS: Clear to auscultate bilaterally. ABDOMEN: Soft, nontender and nondistended. Positive bowel sounds. No guarding, rebound or tenderness. CENTRAL NERVOUS SYSTEM: Grossly nonfocal. EXTREMITIES: Lower extremities without edema bilaterally. Data : 11/23/20 07:03 11/23/20 07:03 A&P Assessment and plan (1) Syncope: Most likely vasovagal, patient has been advised and educated regarding vagal syncope Status: Acute Qualifiers: Syncope type: unspecified Qualified Code(s): R55 - Syncope and collapse (2) Atrial fibrillation: Patient may have tachybradycardia syndrome at this point we may will try one fourth of tablet of metoprolol 6.25 mg twice a day however if she cannot do that she may can stop metoprolol and use it as needed for palpitation pounding or racing of the heart she can take 12.5 mg of metoprolol tartrate. She will be following up with Dr. Reyes, if she continues to have frequent episodes of A. fib she may will be needing device suggest permanent pacemaker for therapeutic use to avoid significant bradycardia in the face of using raymond abril Status: Chronic Qualifiers: Atrial fibrillation type: paroxysmal Qualified Code(s): I48.0 - Paroxysmal atrial fibrillation (3) Murmur: There appeared to be 2/6 sys murmur would may not be the etiology for syncope. Echocardiogram was performed and month of May no need of further repeating any more exam. Status: Acute Attestations Medical Necessity Statement*: Patient may can be discharged home from a cardiovascular perspective Coding Level of Care Code Established Pt Acute [employer] for g Fwd Patient Type Established History Detailed Exam Detailed Medical Decision Making Moderate Complexity Diagnoses Syncope R55 Syncope type: unspecified Atrial fibrillation I48.0 Atrial fibrillation type: paroxysmal Murmur R01.1
[2020-11-24 14:00] VITALS: PULSE 66
--- NOTE | 2020-11-24 15:20 | PC.NURSE ---
Discharge Note Patient discharged to home via private vehicle accompanied by family. Discharge instructions reviewed with patient and/or title insurance sales representative. Mobile pharmacy medications and/or prescriptions provided. Belongings/home medications returned.
[2020-11-24 15:21] VITALS: BP 146/71; PULSE 66; RESP 16; TEMP 36.6; O2SAT 97
--- NOTE | 2020-11-26 13:10 | PC.SOCIAL ---
discharge follow up call made. follow up appointments made for patient, patient called and given follow up dates and times. patient taking new prescriptions as prescribed. not wanting to take eliquis due to cost and is going to discuss with pcp and Dr. Reyes if she can take Plavix instead.
--- NOTE | 2020-11-27 12:22 | PC.SOCIAL ---
Patient returned call to see if appts can be scheduled on same day for Cardiology and Gen Surgeon. She has one on and one . Offered to see if one can be switched but explained that since follow ups are needed timely due to recent discharge often times this is not possible. Patient decides to call Dr Leon office herself to see and number was provided. Encouraged her to make these appts and in the future can schedule in advance so they can be done on same day. NO other questions voiced.
== END 2020-11-24 15:25 | disposition home or self-care (01) | DRG 312 ==
LOC: ER 11-22 02:01 → ER IP 11-22 02:10 → MEDSURG 11-22 14:15
PROVIDERS: Admitting Provider Hospitalist; Emergency Provider Emergency Medicine; PCP Family Medicine; Visit Provider Family Medicine
DX: R55 Syncope and collapse (principal); I48.0 Paroxysmal atrial fibrillation; E86.0 Dehydration; E03.9 Hypothyroidism, unspecified; I10 Essential (primary) hypertension; Z20.822 Contact with and (suspected) exposure to COVID-19; W19.XXXA Unspecified fall, initial encounter; Y92.009 Unspecified place in unspecified non-institutional (private) residence as the place of occurrence of the external cause; F41.9 Anxiety disorder, unspecified; G62.9 Polyneuropathy, unspecified; K80.20 Calculus of gallbladder without cholecystitis without obstruction; R01.1 Cardiac murmur, unspecified; Z86.73 Personal history of transient ischemic attack (TIA), and cerebral infarction without residual deficits; Z82.49 Family history of ischemic heart disease and other diseases of the circulatory system; Z85.3 Personal history of malignant neoplasm of breast; Z90.710 Acquired absence of both cervix and uterus; Z81.8 Family history of other mental and behavioral disorders; Z88.2 Allergy status to sulfonamides; Z79.890 Hormone replacement therapy; Z79.82 Long term (current) use of aspirin; Z90.13 Acquired absence of bilateral breasts and nipples
CPT/HCPCS: 36415; 70450; 71045; 74176; 76705; 80053; 81003; 82550; 82728; 83605; 83615; 83735; 83880; 84100; 84145; 84443; 84484; 85025; 85378; 85384; 85610; 85651; 85730; 86140; 87040; 87426; 87635; 87641; 87804; 93005; 93306; 96360; 96372; 97110; 97116; 97161; 97165; 97530; 99285; G0378; J1650; J2543; J7030

== ENCOUNTER → 2020-12-10 11:05 | Outpatient (BNVA) | payer MEDICARE, OTHER, SELFPAY | PROVIDERS: PCP Family Medicine; Referring Provider Family Medicine; Visit Provider Surgery | DX: R10.11 Right upper quadrant pain (principal); K80.20 Calculus of gallbladder without cholecystitis without obstruction | CPT/HCPCS: 80053; 83690; 85025 ==

== ENCOUNTER 2024-08-29 13:27 | Outpatient (CLI) | payer MEDICARE, SELFPAY ==
--- NOTE | 2024-08-29 13:36 | XR_ITS ---
WS: [id number] SCREENING DEXA SCAN Roll20 CLINICAL INFORMATION: AGE-RELATED OSTEOPOROSIS COMPARISON: 2017 FINDINGS: The L1-L4 bone mineral density measures 1.230 g/cm2. This corresponds to a T score score of 0.4 and Z score of 2.2. Left femoral neck bone mineral density measures 0.724 g/cm2. This corresponds to a T score of -2.3 and Z score of 0.1. Right femoral neck bone mineral density measures 0.748 g/cm2. This corresponds to a T score -2.1of and Z score of 0.3. Mean femoral neck bone mineral density measures 0.736 g/cm2. This corresponds to a T score of -2.2 and Z score of 0.2. XR/XR DEXA axial skeleton* 91225 IMPRESSION: Normal bone mineralization lumbar spine. Osteopenia femoral necks. Patient's FRAX calculated 10 year probability for major osteoporotic fracture i s 30.6% and osteoporotic hip fracture is 21.8%. Bone mineral density lumbar spine decreased -3.8% Bone mineral density femoral necks decreased -12.2%
== END 2024-08-29 13:28 | disposition home or self-care (01) ==
PROVIDERS: PCP Family Medicine; Visit Provider Family Medicine
DX: Z78.0 Asymptomatic menopausal state (principal); M20.41 Other hammer toe(s) (acquired), right foot; M81.0 Age-related osteoporosis without current pathological fracture; M20.42 Other hammer toe(s) (acquired), left foot
CPT/HCPCS: 77080; 99204